=== PATIENT | female | born 1955 | race Caucasian/White ===

== ENCOUNTER 2016-06-06 00:47 | Day surgery (SDC) | payer OTHER ==
[~2016-06-06] VITALS: Ht 170.2 cm; Wt 94.4 kg
[2016-06-06] VITALS (7 sets, daily range): BP systolic 127–138; BP diastolic 65–73; PULSE 66–80; RESP 10–17; O2SAT 95–100
[~2016-06-06 00:47] MED LIST: LOV100 SUBQ; TERB250T11 PO; WARF6TAB6 PO
[2016-06-06] MEDS ORDERED: Ondansetron 2 mg/mL 2 mL Inj ONE (00:48)
[2016-06-06] MEDS ORDERED: Propofol 10,000 mCg/mL 20 mL Inj ONE (00:48)
[2016-06-06] MEDS ORDERED: Dexamethasone 4 mg/mL Inj ONE (00:48)
[2016-06-06] MEDS ORDERED: EPHEDrine/NS 5 mg/mL 5 mL Syringe ONE (00:48)
[2016-06-06] MEDS ORDERED: fentaNYL-PF 50 mCg/mL 2 mL Inj ONE (00:48)
[2016-06-06] MEDS ORDERED: Lactated Ringer's 1,000 ML IV SCH ×2 (05:00→09:29)
[2016-06-06] MEDS ORDERED: CeFAZolin 2 Gm/50 mL D5W IV Premix IV ONE (06:00)
[2016-06-06] MEDS ORDERED: Lactated Ringer's 500 ML IV PRN (09:29)
[2016-06-06] MEDS ORDERED: fentaNYL-PF 50 mCg/mL 2 mL Inj IVPUSH PRN (09:30)
[2016-06-06] MEDS ORDERED: Ondansetron 2 mg/mL 2 mL Inj IVPUSH PRN (09:30)
[2016-06-06] MEDS ORDERED: HYDROmorphone 1 mg/mL Inj IVPUSH PRN (09:30)
[2016-06-06] MEDS ORDERED: MetoCLOpramide 5 mg/mL 2 mL Inj IVPUSH PRN (09:30)
[2016-06-06] MEDS ORDERED: hydrALAZINE 20 mg/mL Inj IVPUSH PRN (09:30)
[2016-06-06] MEDS ORDERED: Phenylephrine 10,000 mCg/mL Inj IVPUSH PRN (09:30)
[2016-06-06] MEDS ORDERED: Labetalol 5 mg/mL 4 mL Inj IV PRN (09:30)
[2016-06-06] MEDS ORDERED: Atropine 0.4 mg/mL Inj IVPUSH PRN (09:30)
[2016-06-06] MEDS ORDERED: EPHEDrine Sulfate 50 mg/mL Inj IVPUSH PRN (09:30)
[2016-06-06] MEDS ORDERED: Bupivacaine Liposome 1.3% 20 mL Inj ONE (10:03)
--- NOTE | 2016-06-06 10:05 | PCM.HPANE ---
Patient Data Surgeon Admitting Provider: Attending Provider:Hermilo Todd MD Primary Care Physician:Elva Hirsch Other Provider: Reason for Visit Anal Lesion Ht/WT & BMI Height (Feet): 5 Height (Inches): 8 Weight (Kilograms): 95.70 Body Mass Index 31.00 Allergies Coded Allergies: lactose (Verified Allergy, Unknown, 05/31/16) Past Anesthesia History Anesthesia History: Denies:: Abnormal Airway, Anesthesia Reactions, Difficult Intubation, Fam Anesthesia Reaction Diabetes History Hx Diabetes?: No MRSA MRSA: No Medications Blood Thinner: Coumadin, Lovenox Hypertension Medication: No Home Meds Incl Beta Reggie: No Reported Medications Terbinafine 250 Mg [id number] Mg PO DAILY 05/31/16 Enoxaparin (Lovenox)100 Mg/Ml [id number] Mg SUBQ Q12 Ref 0 05/31/16 Warfarin Sodium 6 Mg Tablet8 Mg PO Mon,Wed, Fri 30 Days 05/31/16 Warfarin Sodium 6 Mg Tablet6 Mg PO 4xweekly 30 Days 05/31/16 History HEENT History: Denies:: Abnormal Airway Cataracts Difficult Intubation Dysphagia Glaucoma Hearing Problem Sinus Problem TMJ Hx of Heart Problems?: Yes Cardiovascular History: Positive for:: Atrial Fibrillation Cardiac Surgery (mitral valve replacement 2003) Edema (ankles - since heart surgery, lymphedema-hx cellulitis) Denies:: AICD Heart Murmur Hypertension Irregular Heartbeat Pacemaker Peripheral Vascular Rheumatic Fever Valvular Heart Disease (echo 2013 requested, next echo scheduled june 2016 ) Other History/Comments > 4 METS, last echo 08/2103 Ef 65% Hx of Respiratory Problem?: No Respiratory History: Denies:: Asthma COPD Emphysema Oxygen Administration Pneumonia Tuberculosis Use of C-PAP Machine Use of Inhalers / NEBS Hx Neurologic Problems?: No Neurological History: Denies:: Alzheimer's Disease CVA Dementia Dizziness Headaches Multiple Sclerosis Parkinson's Disease Seizures TIA Hx of GI Problems?: Yes Gastrointestinal History: Positive for:: Rectal Bleeding (anal mass- current admission problem) Denies:: Cirrhosis Diverticulitis Gall Bladder Disease Gastroesphageal Reflux Gastrointestinal Bleeding Heartburn Hepatitis Hiatal Hernia Liver Disease Hx of Problems?: No Genitourinary History: Denies:: Kidney Stones Urinary Tract Infection Female Hx: Positive for:: Problems with Breasts? (hx of breast reduction 2008) Denies:: Currently (tubal ligation) Skin History: Denies:: History Skin Disorders? Pressure Ulcers Hx Musculoskeletal Problems?: No Musculoskeletal History: Denies:: Back Injury Degenerative Joint Fibromyalgia Joint Replacement Musculoskeletal Trauma Myasthenia Gravis Osteoarthritis Rheumatoid Arthritis Systemic Lupus Hx of Psycho/Social Problems?: No Psycho Social History: Denies:: Anxiety Hx Depression Hx Surgeries?: Yes (mitral valve, breast reduction, tubal, commissurotomy) Hx Any Other Health Problems?: Yes Other History: Denies:: Cancer Thyroid Disease History Blood Transfusions: Positive for:: Accept Blood Products? Blood Transfusions (possible- uncertain) Denies:: Blood Transfuse Reaction Hx Diabetes: No Hx Alcohol Use: YesAlcoholic Drinks Per Day: couple glasses wine weeklyHx Substance Use: NoHave You Smoked inLast 12 mo: No Stop/Bang S-Snoring: Do You Snore Loudly: No T-Tired: feel tired, fatigued: No O-Obsered: Observed not breath: No P-Blood Pressure: treated: No B- Body Mass Index > 35 kg/m2: No A- Age over 50: Yes N- Neck Large Circumference: No G- Gender Male: No SANDIP Total Score: 1 SANDIP Risk Assessment: Low Risk, <3 Yes Risk Assessment Category Category 1A: Patient has history of documented sleep apnea, and HAS NOT received any narcotic, sedative or anesthesia administration during this stay. Category 1B: Patient has history of documented sleep apnea, and HAS received any narcotic , sedative or anesthesia administration during this stay Category 2: Patient has SUSPECTED Obstructive Sleep Apnea, and HAS received any narcotic , sedative or anesthesia administration during this stay. Category 3: Patient has SUSPECTED Obstructive Sleep Apnea and HAS NOT received narcotic, sedative or anesthesia administration during this stay. Category 4: Outpatient in Procedural Areas with known sleep apnea or who screen positive for High Risk via the STOP/BANG questionnaire. Exam Exam General Appearance: Alert, Oriented X3, Cooperative, No Acute Distress HEENT/AIRWAY: MP 2 Lungs: Clear to Auscultation, Normal Air Movement Heart: Exam Unremarkable, Regular Rate/Rhythm, No Murmurs/Rubs/Gallops Plan Impression Patient chart reviewed, patient interviewed and anesthestic plan with risks, benefits, and alternatives discussed, and informed consent obtained. ASA Physical Status: ASA2 Mod Systemic Disease Anesthetic Plan: GA Bene/Risks/Altern/Consents: Yes HP Complete Prior to Induction: Yes Owen Paulson MD Jun 06, 2016 09:01
[2016-06-06] MEDS ORDERED: Lactated Ringer's 1,000 ML IV ONE (10:10)
[2016-06-06] MEDS ORDERED: Gelatin Sponge SZ 50 TOPICAL ONE (11:39)
[2016-06-06] MEDS ORDERED: oxyCODONE-Acetamin 5-325 mg Tablet PO PRN (12:05)
--- NOTE | 2016-06-06 12:36 | OP ---
[address] [address] OPERATIVE REPORT PATIENT: LAMAR YBARRA : 1955 MR#: [id number] ADMIT: 06/06/2016 JOB ID: [id number] DATE OF SURGERY: 06/06/2016 ANESTHESIA: General. PREOPERATIVE DIAGNOSIS(ES): Anal lesion. POSTOPERATIVE DIAGNOSIS(ES): Anal lesion (likely condyloma). OPERATIVE PROCEDURE: Excision of anal lesions. SURGEON: Hermilo Todd MD. ASSISTANTS: Nayla Reeves PA-C (the assistant chief engineer was required for safe and timely completion of the case) and SADIA Hussein. COMPLICATIONS: None. ESTIMATED BLOOD LOSS: 20 mL. CONDITION: Satisfactory. SPECIMEN: 1. Left buttock lesion. 2. Left posterior anal lesion. 3. Left lateral rectal lesion. FINDINGS: She had what looked like a little neurofibroma in the left lateral buttock which was excised. She also had what looked like a very large condyloma extending from the left posterior aspect of the anus posteriorly and over to the right side. I excised the larger portion of this and then cauterized the remaining. Also higher up extending from this was some mucosal abnormality in the rectum which was probably just an extension of the condyloma but I also excised this as a separate specimen. OPERATIVE TECHNIQUE: The patient was brought in the operating room, and a colonoscopy was performed. Please see the separately dictated note. After completion of colonoscopy, she was placed on the surgical bed in the lithotomy position. She had already received perioperative antibiotics. The perineum was prepped and draped in standard surgical fashion. A procedure pause had already been performed. I began by visual inspection of anus using an anal speculum. I then used electrocautery to excise the small left buttock lesion. I then turned my attention to the larger portion of the condyloma and used electrocautery to excise this. There was heavy bleeding. This was controlled using electrocautery. I then elected to cauterize the right extension of that lesion. More proximally in the very distalmost rectum on the left side, there was some mucosal abnormality. Given the amount of bleeding encountered prior, I decided to use the LigaSure device to excise that mucosa. That was handed off as a separate specimen. Manual pressure was then held. Then, the anus was packed with Gelfoam wrapped in Surgicel. Liposomal bupivacaine was then injected to achieve an adequate block. Case was then concluded.
--- NOTE | 2016-06-06 13:27 | PCM.ANEP1 ---
Post Anesthesia Phase 1 PACU Phase 1 Assessment Vital Signs Vital Signs Date Time Temp Pulse Resp B/P Pulse Ox O2 Delivery O2 Flow Rate FiO2 06/06/16 13:09 66 17 133/70 96 Room Air 06/06/16 12:15 72 14 127/73 96 Room Air 06/06/16 12:05 70 13 132/70 99 Room Air 06/06/16 12:00 76 14 137/70 100 Nasal Cannula 2 06/06/16 11:55 80 12 134/72 100 Nasal Cannula 2 06/06/16 11:49 36.7 79 10 127/72 100 Nasal Cannula 2 06/06/16 08:58 36.6 76 14 138/65 95 Room Air Anesthetic Administered: GA Level of Alertness: Awake, talking DELAROSA's with Equal Strength: Yes Pain: No Nausea or Vomiting: No Oxygen Delivery: Nasal Cannula Lungs: Clear to Auscultation, Normal Air Movement Owen Paulson MD Jun 06, 2016 13:27
--- NOTE | 2016-06-06 13:28 | PCM.ANEP2 ---
Post Anesthesia Evaluation ASA/CMS Post Anesthesia VS in Patient's Normal Range?: Yes Resp Stable; Airway Patent?: Yes CV Function & Hydration Stable: Yes Mental Status Recovered?: Yes Pain control Satisfactory?: Yes N/V Control Satisfactory?: Yes Owen Paulson MD Jun 06, 2016 13:28
--- NOTE | 2016-06-06 13:43 | ENDO ---
[address] [address] ENDOSCOPY PROCEDURE PATIENT: LAMAR YBARRA : 1955 MR#: [id number] ADMIT: 06/06/2016 JOB ID: [id number] PROCEDURE: Screening colonoscopy. SURGEON: Hermilo Todd MD EQUIPMENT: PCF H 180 AL. SEDATION: General anesthesia. PREPARATION QUALITY: Good. INDICATION/SIGNIFICANT HISTORY: The patient is a 60-year-old female who has never had a screening colonoscopy. She was undergoing resection of an anal lesion and the decision was made to perform a colonoscopy at the same time. DESCRIPTION OF PROCEDURE: The patient was brought into the operating room and general anesthesia was administered. She was then placed in the left lateral decubitus position. Digital rectal exam was performed. She had a large condylomatous lesion in the anus. The scope was then inserted and slowly directed through to the cecum. The appendiceal orifice and ileocecal valve were both identified and photographed. The ileocecal valve was intubated and the terminal ileum photographed. The scope was then slowly withdrawn, examining the mucosa for any defects or lesions. There were very few scattered diverticula within the sigmoid colon. Retroflexed views were obtained in the rectum that were suboptimal due to the leakage of air. The scope was then withdrawn and the colonoscopy concluded. ENDOSCOPIC FINDINGS: Sigmoid diverticulosis. RECOMMENDATION: Repeat colonoscopy in 10 years.
--- NOTE | 2016-06-10 16:52 | PATH ---
SURGICAL PATHOLOGY Attending Physician:Hermilo Todd MD CASE STATUS: Signed Out PATIENT NAME: LAMAR YBARRA PID: [id number] : 1955 DATE COLLECTED:06/06/2016 23:34 SPECIMEN: 1: Left buttock lesion 2: Left posterior anal lesion 3: Left lateral rectal lesion CLINICAL HISTORY: ANAL MASS 1). LEFT BUTTOCK LESION 2). LEFT POSTERIOR LESION 3). LEFT LATERAL RECTAL LESION FINAL DIAGNOSIS: 1.LEFT BUTTOCK LESION: BENIGN FIBROEPITHELIAL POLYP. NO EVIDENCE OF NEOPLASIA. 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 THE EPITHELIAL MARGINS ARE POSITIVE FOR DYSPLASIA. 3.LEFT LATERAL RECTAL LESION: BENIGN COLONIC MUCOSA WITH NO DIAGNOSTIC ALTERATIONS, EVALUATION LIMITED BY CAUTERY ARTIFACT. ICD10 code C21.1 NOTE: As part of a routine senior quality engineer, Dr. Carmelina Quesada has also reviewed this case and agrees with the diagnosis. GROSS DESCRIPTION: The specimen is received in three formalin filled containers labeled with the patient's name. 1). The specimen is sublabeled "left buttock" and consists of a rodríguez-amador pedunculated piece of skin which measures 1.1 x 0.9 x 0.7 CM the surgical margin is inked blue. The specimen is sectioned into 4 pieces and entirely submitted in cassettes 1A. 2). The specimen is sublabeled "left posterior lesion" and consists of a pink-amador friable rough dome shaped piece of skin which measures 1.8 x 1.5 x 1.0 CM. The specimen is fragmenting. The specimen is sectioned into 6 pieces and entirely submitted in cassettes 2A and 2B. 3). The specimen is sublabeled "left lateral rectal lesion" and consists of an irregularly shaped portion of tissue which measures 1.4 x 0.4 x 0.3 CM. The specimen is inked, sectioned into 4 pieces and entirely submitted in cassette 3A. 06/07/2016 [facility] MICRO DESCRIPTION: See diagnosis. ICD-9 CODES: CPT CODES: 1: 92011 2: 16502 3: 77179, 60156 <CR>, 73642 PROCEDURE/ADDENDA: Addendum SPI Addendum Diagnosis {Not Entered} Addendum Comment This addendum is issued to give additional information about the invasive carcinoma in the left posterior anal lesion (specimen 2). Additional deeper levels were obtained to quantitate the invasive area. The deeper levels showed a 6 x 4 mm area of invasion. The invasive carcinoma is less than 1 mm from the cauterized deep margin. No lymph/vascular or perineural invasion is identified. Pathologic staging (pTNM), based on this specimen: pT1. This information was reported by telephone to Dr. Todd on 07/04/[address] Torres. Electronically Signed Out Laurie Torres MD Electronically Signed Out Laurie Torres MD [facility] [address], [place] [address] Technical component performed at [facility], [address] [place] [address] [address], [place], [address]
[2016-08-19] MEDS ORDERED: LACT1CAP65 PO (13:12)
[2016-08-19] MEDS ORDERED: AMBEREN PO (13:12)
[2016-08-19] MEDS ORDERED: VIT B COMPLEX PO (13:12)
[2016-08-19] MEDS ORDERED: MAGN400T39 PO (13:12)
[2016-08-19] MEDS ORDERED: CO Q10 LIQUID PO (13:12)
[2016-08-19] MEDS ORDERED: KRIL1CAP PO (13:12)
[2016-08-19] MEDS ORDERED: CYAN50008 PO (13:12)
[2016-08-19] MEDS ORDERED: ASCO100089 PO (13:12)
[2016-08-19] MEDS ORDERED: CHOL-4 PO (13:12)
[2016-09-11] MEDS ORDERED: CAPE500T PO ×2 (08:40)
[2016-09-18] MEDS ORDERED: ZOF8 PO (14:24)
[2016-10-02] MEDS ORDERED: OXYC5CAP4 PO (14:11)
[2016-10-09] MEDS ORDERED: DIPH1TAB PO (13:29)
== END 2016-06-06 23:59 | disposition home or self-care (01) ==
LOC: SAS 00:47
PROVIDERS: ATTEND General Practice
DX: Z12.11 Encounter for screening for malignant neoplasm of colon (principal); C44.520 Squamous cell carcinoma of anal skin; D23.5 Other benign neoplasm of skin of trunk; K57.30 Diverticulosis of large intestine without perforation or abscess without bleeding; I48.2 Chronic atrial fibrillation; Z79.01 Long term (current) use of anticoagulants; Z95.2 Presence of prosthetic heart valve
CPT/HCPCS: 11402; 46922; G0121; J0690; J1100; J2405; J3010; J3490; J7120

== ENCOUNTER 2016-10-12 12:54 | Inpatient (IN) | payer OTHER ==
[~2016-10-12] VITALS: Ht 170.2 cm; Wt 91.4 kg
[~2016-10-12 12:54] MED LIST changes: +AMBEREN PO; +ASCO100089 PO; +CAPE500T PO; +CHOL-4 PO; +CYAN50008 PO; +DIPH1TAB PO; +KRIL1CAP PO; +LACT1CAP65 PO; -LOV100 SUBQ; +MAGN400T39 PO; +OXYC5CAP4 PO; -TERB250T11 PO; +VIT B COMPLEX PO; +ZOF8 PO
[2016-10-12 13:01] VITALS: BP 123/63; PULSE 83; RESP 15; O2SAT 97
--- NOTE | 2016-10-12 13:05 | ED.REPORT ---
HPI-General Illness Date of Service Oct 12, 2016 ED Provider: Dr. Monsivais Pt is a 60 y/o female anticoagulated on Warfarin w/ a hx of stage IIIB anal cancer on oral Xeloda and mitomycin-C, CHF s/p mitral valve replacement, A-fib, presenting to the ED by recommendation of oncology due to diarrhea onset 2 weeks ago. The patient has been experiencing about 20 loose bowel movements per day along with associated abdominal pain, nausea, mild vomiting, and dysuria. She also reports bright red blood on the toilet paper after BMs which she describes is caused by excessive wiping. Pt denies fever, chills, CP, SOB, melena. Of note, she was seen a few days ago in "a clinic" and her INR was 10. She was given Vitamin K for correction.She is denying pain medication at the moment. The on-call oncologist Dr. Shane called the ED and spoke to me prior to arrival and recommended labs, IV fluids, stool PCR, and likely admit. He stated her stool studies were normal last week, Hgb has been trending downwards. Oncologist: Jose Nursing Notes Stated Complaint: STOMACHE PAIN,DIARRHEA Chief Complaint: Female Abdominal Pain Nursing Notes Reviewed: Yes Allergies: Coded Allergies: No Known Allergies (Unverified , 08/19/16) Scheduled ([Amberen]) 1 CAPSULE PO DAILY ([Vit B Complex]) 1 TAB PO DAILY Ascorbic Acid (Vitamin C) 1,000 Mg Tab.chew 1,000 MG PO DAILY Capecitabine (Xeloda) 500 Mg Tablet 2,000 MG PO QAM W/RADIATION Capecitabine (Xeloda) 500 Mg Tablet 1,500 MG PO QEVENING W/RADIATION Cholecalciferol (Vitamin D3) (Vitamin D3) 10,000 Unit Capsule 10,000 UNIT PO DAILY Cyanocobalamin (Vitamin B-12) (Vitamin B12) 5,000 Mcg Tab.rapdis 5,000 MCG PO DAILY Krill/Om3/Dha/Epa/Om6/Lip/Astx (Krill Oil 1,000 mg Softgel) 1 Each Capsule 1 EACH PO DAILY Lactobacillus Acidophilus (Probiotic) 1 Each Capsule 1 EACH PO DAILY Magnesium Oxide (Magnesium) 400 Mg Tablet 400 MG PO DAILY Warfarin Sodium (Warfarin Sodium) 6 Mg Tablet 8 MG PO DAILY Scheduled PRN Diphenoxylate/Atropine 2.5-0.025 mg (Lomotil 2.5-0.025 mg) 1 Each Tablet 1 TABLET PO Q6H PRN PRN For Diarrhea or Loose Stool Ondansetron (Zofran) 8 Mg Tablet 8 MG PO q8hrs prn PRN PRN For Nausea oxyCODONE (oxyCODONE) 5 Mg Capsule 5 MG PO DAILY PRN PRN For Pain General Time Seen by MD: 13:05 Chief Complaint Diarrhea Hx Obtained From: Patient Arrived By: Walk-in Sudden in Onset?: No Onset Occurred: More than a week ago... (2 weeks) Symptom Duration: Since onset Location: : Abdomen Quality: Painful Severity: Current: Mild Severity: Maximum: Moderate Recent Healthcare: Recent doctor visit Past Medical History Past Medical History Notes: Oncologist: Jose Past Medical History 1. Mitral valve replacement with a prosthetic valve in 2003 on anticoagulation. 2. Congestive heart failure. 3. History of atrial fibrillation on Warfarin 4. Lower extremity edema. 5. Mitral commissurotomy in 1983. When asked, she does not recall she might have received blood transfusion with that procedure in 1983. 6. Echocardiogram performed on June 25, 2016 here at our center showed a normal ejection fraction of 55% to 60%. 7. Stage IIIB anal cancer and started chemoradiation with oral Xeloda and mitomycin-C starting September 11, 2016. Past Surgical History Mitral valve replacement in 2003 Tubal ligation Family History She has one sister and two brothers. One maternal cousin had breast cancer and a paternal female cousin also had breast cancer. Smoking History Never Smoker Social History Alcohol Use: 1-3 per week Drug Use: Denies drug use Ambulatory Status Independent Review of Systems Full Review of Systems Constitutional: Denies: Chills, Fever Respiratory: Denies: Non-productive cough, Shortness of breath Cardiovascular: Denies: Chest pain, Dyspnea on exertion GI: Reports: Abdominal pain, Diarrhea, Hematochezia, Nausea, Vomiting, Denies: Bloody/tarry stool, Hematemesis, Melena Female: Reports: Dysuria Neurologic: Denies: Numbness, Weakness Complete sys rev & neg: except as marked. Physical Exam Vital Signs Vital Signs Date Time Temp Pulse Resp B/P Pulse Ox O2 Delivery O2 Flow Rate FiO2 10/12/16 13:01 37.3 83 15 123/63 97 Room Air Initial VS: Reviewed, Vital signs normal Head / Eyes: Atraumatic, Normocephalic, PERRL ENT: Mucous membranes moist, Conjunctiva normal, No scleral icterus Neck: Supple, Full range of motion Respiratory: Breath sounds normal, Clear to auscultation, No respiratory distress Extremities: Vascular intact, Neuro intact, No swelling, No tenderness Skin: Warm, Dry, No cyanosis Neurologic: Alert, Oriented, Nonfocal Psychiatric: Mood/affect normal, Behavior normal, Normal thought content General/Constitutional: Awake, Alert, No acute distress, Cooperative, Not toxic appearing Distress / Hydration: Positive: Dehydration mild Appearance / Presentation: Positive: Uncomfortable Cardiovascular: Heart rate NL, Regular rhythm Prominent click at the apex of the heart Abdomen: Atraumatic, Soft, No guarding, No rebound Tenderness/Guarding/Rebound: Positive: Tender diffuse (mild) Bowel Sounds / Distention: Positive: Distention mild Interpretation & Diagnostics Lab Results Interpretation Result Diagram: 10/12/16 1325 10/12/16 1325 Test 10/12/16 13:25 White Blood Count 5.1th/mm3 (3.8-10.1) Red Blood Count 3.67mil/mm3 (3.90-5.20) Hemoglobin 10.8g/dL (12.0-15.6) Hematocrit 31.7% (35.0-46.0) Mean Corpuscular Volume 86.4fL (81-100) Mean Corpuscular Hemoglobin 29.4pg (27.0-35.0) Mean Corpuscular Hemoglobin Concent 34.1% (32.0-37.0) Red Cell Distribution Width 13.5% (12.3-15.4) Platelet Count 231bil/L (150-400) Neutrophils (%) (Auto) 81.7% (40-74) Lymphocytes (%) (Auto) 3.5% (14-46) Monocytes (%) (Auto) 7.0% (4-12) Eosinophils (%) (Auto) 7.4% (0-5) Basophils (%) (Auto) 0.2% (0-3) Prothrombin Time 88.9sec (8.1-12.5) Prothromb Time International Ratio 7.96ratio Sodium Level 136mEq/L (134-144) Potassium Level 3.1mEq/L (3.5-5.2) Chloride Level 100mEq/L (97-108) Carbon Dioxide Level 22mmol/L (18-29) Blood Urea Nitrogen 9mg/dL (8-27) Creatinine 0.46mg/dL (0.57-1.00) Estimat Glomerular Filtration Rate 198mL/min (>59) Glucose Level 114mg/dL (60-99) Calcium Level 8.4mg/dL (8.5-10.1) Magnesium Level 1.6mg/dL (1.6-2.6) Total Bilirubin 0.6mg/dL (0.0-1.2) Aspartate Amino Transf (AST/SGOT) 38U/L (0-50) Alanine Aminotransferase (ALT/SGPT) 61U/L (0-32) Alkaline Phosphatase 81U/L (25-165) Total Protein 6.1g/dL (6.4-8.4) Albumin 3.4g/dL (3.4-5.0) Lipase 20U/L (13-60) Re-Eval/Medical Decision Med Decision/Clinical Course Persistent diarrhea thought to be due to radiation bowel injury. Normal white blood cell count recently negative stool C. difficile. Supportive care given. Oral vitamin K, 100 g subcutaneous octreotide, 10 mg IV dexamethasone, and supplemental IV fluids given. Abdominal exam is reassuring and do not suspect that she has an acute surgical abdomen. Patient will be admitted. Source of Hx: Old records, Private physician Time of Eval: 14:30 Re-Evaluation/Progress Note: Pt rechecked. Informed pt of need for admission for rehydration. Pt understands and agrees with plan for admission. All questions addressed. Time of Eval: 14:44 Re-Evaluation/Progress Note: CODE STATUS DISCUSSED: FULL CODE Consultation #1: Referral / Consult Name: Ephraim Evans MD Consulted With: Hospitalist Call Returned at: 14:30 Application Security Architect: Will see patient, Agrees with eval, Agrees with plan, Accepts admit Consultation #2: Referral / Consult Name: Graciela Shane MD Call Returned at: 12:45 Application Security Architect: Agrees with eval, Agrees with plan Note: Oncology will consult. Counseled Regarding: Diagnosis, Lab results, Need for admission Discharge & Departure Primary Impression: Dehydration Additional Impressions: Anal cancer Symptomatic anemia Supratherapeutic INR Diarrhea Diarrhea type: unspecified type Qualified Code: R19.7 - Diarrhea, unspecified Hypokalemia Anticoagulated on warfarin Lower GI bleed Disposition: ADMITTED TO HOSPITAL Discharge Condition All VS Reviewed: Yes Condition: Stable Referrals: Elva Hirsch (PCP) Paulo uGzman MD Attestation Portions of this note were transcribed by Klever Guzmán. I, Dr. Monsivais personally performed the history, physical exam and medical decision-making; I reviewed and confirmed the accuracy of the information in the transcribed note. Signed by Suleiman Cavanaugh, 10/12/16 - 1400 copies to: Elva Hirsch; Paulo Guzman MD, Timothy S DO Oct 12, 2016 13:05 KLEVER GUZMÁN Oct 12, 2016 13:12
[2016-10-12] MEDS ORDERED: 0.9% Sodium Chloride 1,000 ML IV ONE (13:10)
[2016-10-12] MEDS ORDERED: Ondansetron 2 mg/mL 2 mL Inj IVPUSH PRN ×3 (13:10→16:35)
[2016-10-12] MEDS ORDERED: Dexamethasone Inj 10 MG in 0.9% Sodium Chloride-Pha MIX 50 ML IV ONE (13:35)
[2016-10-12 13:56] LABS: BASOPHILS % (AUTO) 0.2 % (0-3); EOSINOPHILS % (AUTO) 7.4 % (0-5); Mean Corpuscular Hemoglobin 29.4 pg (27.0-35.0); Mean Corpuscular Volume 86.4 fL (81-100); NEUTROPHILS % (AUTO) 81.7 % (40-74); Platelet Count 231 bil/L (150-400)
[2016-10-12 14:15] LABS: Magnesium 1.6 mg/dL (1.6-2.6)
[2016-10-12 14:32] LABS: INR 7.96 ratio
[2016-10-12] MEDS ORDERED: 0.9% Sodium Chloride 1,000 ML IV SCH ×2 (14:44→16:32)
[2016-10-12] MEDS ORDERED: Alum-Mag Hydrox-Simeth 30 mL Suspension PO PRN ×2 (14:45→16:35)
[2016-10-12] MEDS ORDERED: KCl 40 mEq/D5W 500 mL 40 MEQ in IV Premix 1 EACH IV ONE (14:45)
[2016-10-12] MEDS ORDERED: Phytonadione (Adult) 10 mg/1 mL Inj PO ONE (14:45)
[2016-10-12] MEDS ORDERED: OXYC-407 PO (14:47)
[2016-10-12] MEDS ORDERED: VIT1TABL83 PO (14:47)
[2016-10-12 16:15] VITALS: BP 138/75; PULSE 71; RESP 16; O2SAT 96
[2016-10-12] MEDS ORDERED: Polyethylene Glycol (PEG) 17 Gm Powder PO PRN (16:35)
[2016-10-12] MEDS ORDERED: Ondansetron 8 mg ODT Tablet PO PRN (16:40)
--- NOTE | 2016-10-12 17:10 | PCM.PHAPRO ---
Progress Date of Service: Oct 12, 2016 Requesting Provider: Ephraim Evans MD MVR, AFib inr goal 2.5-3.5 INR 7.9..no warfarin Cullen Shelton [facility] Oct 12, 2016 17:10
[2016-10-12] MEDS: oxyCODONE-Acetamin 5-325 mg Tablet PO PRN (17:24)
--- NOTE | 2016-10-12 17:36 | HP ---
[address] [address] HISTORY AND PHYSICAL PATIENT: LAMAR YBARRA : 1955 MR#: [id number] ADMIT: 10/12/2016 JOB ID: [id number] PRIMARY CARE PROVIDER: 1. Torrey, nurse practitioner. 2. Dr. Garica, Hematology/Oncology. 3. Dr. Bowden, Radiation Oncology. Patient is admitted from the ED, observational status, orange team. CHIEF COMPLAINT: Unremitting diarrhea, weakness, fatigue, and pain, not well controlled by oral medicines. HISTORY OF PRESENT ILLNESS: This is a 60-year-old female, recently diagnosed with stage IIIB anal cancer, on chemoradiation therapy, who has had just unremitting diarrhea for 2+ weeks. The patient has been given octreotide. She had a stool diff sent which was negative. She has been taking Imodium and then Lomotil with no relief. Her INR went very high. That had to be held, INR was 10 on Friday. Repeated today, it was down to 7, and her Coumadin has been on hold. Patient also uses Percocet for pain, mostly in the perirectal/abdominal area and that has not been well controlled either, and she is worried that she may not be even absorbing the Percocet that she has been using. No fevers, no chills. No nausea, vomiting. No chest pain. Patient had a headache but that is resolved at this time. REVIEW OF SYSTEMS: Complete review of systems obtained, all pertinent positives in HPI above, rest of review of systems are negative. PAST MEDICAL HISTORY: 1. Recently diagnosed stage IIIB anal cancer, on chemo radiation therapy. 2. Mitral valve replacement, 2003, on Coumadin. 3. History of mitral commissurotomy 1983. 4. AFib. MEDICATIONS: 1. Percocet 5/325, 1-2 q.6 h. p.r.n. p.o. 2. Lomotil 1 q.6. 3. Octreotide occasionally and recently in the doctor's office. 4. Coumadin on hold for a few days for an INR that was elevated. ALLERGIES: None. SOCIAL HISTORY: The patient lives with her . Quit smoking about 15 years ago. There is no alcohol use at this time. FAMILY HISTORY: A maternal cousin with breast cancer noted. PHYSICAL EXAMINATION: Afebrile, heart rate 83, respiratory rate 15, blood pressure 122/63, O2 sats 97% on room air. The patient appears a bit uncomfortable in bed. In the emergency department, she has already received 1 L of fluid which has made her feel better. She got a dose of IV morphine which also helped. Given some octreotide and 10 mg of Decadron IV. Skin is warm and dry. Mucous membranes a little dry but not parched. Eyes: PERRLA. EOM intact. No JVD. Cardiac is regular with mechanical heart sounds. No significant murmur. Lungs are clear but slightly diminished. No rhonchi, wheezing, or rales. Her abdomen is soft, nonacute, and benign anteriorly. Her extremities showed no significant edema. Cranial nerves 2-12 are intact. No gross motor or sensory defects noted. DIAGNOSES: 1. Unremitting diarrhea, present on admission. Active. I have reviewed this with Dr. Shane route contractor as he had sent patient to hospital. The patient has had Decadron and octreotide. We are going to maintain some hydration, increase the Lomotil to two tablets every 4 hours p.r.n. diarrhea. Will also send a stool PCR. Depending on those results and response, will make further diagnostic and therapeutic intervention. 2. Dehydration present on admission. Active. Patient has already received a liter, feeling better. Put on a regular diet. Provide her with NS at 100 and will repeat a BMP tomorrow. Will also get all her baseline lab today. 3. Supratherapeutic INR, INR 7.96. Will initiate Coumadin management per Pharmacy, and get a pro-time every day. Obviously, patient's Coumadin will be held until it drops within a therapeutic range. Her therapeutic range is 2.5-3.5. 4. Mechanical mitral valve. On Coumadin. Present on admission. Stable. Continue with Coumadin and try to achieve a therapeutic window. 5. Stage IIIB anal cancer, present on admission. Stable. CODE STATUS: FULL CODE. Code sheet filled out.
[2016-10-12 18:01] LABS: Magnesium 1.6 mg/dL (1.6-2.6)
--- NOTE | 2016-10-12 18:06 | NUR ---
Admit Patient arrived to room [facility] at 1545 via stretcher from ED. Patient ambulated to bed with as SBA, steady on feet. A/Ox3. IVF infusing. Pt oriented to room, call light, and bed. Patient informed of plan of care. Admit completed by admit nurse.
[2016-10-12 19:01] LABS: APPEARANCE,URINE CLEAR (CLEAR,HAZY); COLOR,URINE YELLOW (YELLOW)
[2016-10-12 19:02] LABS: OCCULT BLOOD,URINE SMALL (NEGATIVE); UROBILINOGEN,URINE NORMAL (NORMAL)
[2016-10-12] MEDS: 0.9% NaCl + KCl 20 mEq/L 1,000 ML IV SCH (19:44)
[2016-10-12] MEDS: DiphenOXYlate-Atropine 2.5 mg-0.025 mg Tablet PO PRN (19:47)
--- NOTE | 2016-10-12 20:35 | NUR ---
Diarrhea Already had 2 episodes of diarrhea upon arrival to shift gave first dose of prn Lomotil Addendum: 10/13/16 at 0630 by JEREMY SHARPE RN Diarrhea continues but has slowed in frequency as well as signs of blood in stool
[2016-10-12 22:20] VITALS: BP 143/79; PULSE 70; RESP 18; O2SAT 96
[2016-10-12] MEDS: HYDROmorphone 1 mg/mL Inj IVPUSH PRN (22:22)
[2016-10-12] MEDS: Mineral Oil-Petr Hydrophillic 50 Gm Ointment TOPICAL PRN (22:22)
--- NOTE | 2016-10-12 23:20 | NUR ---
Topical solution per patient uses Aquaphor for rectal pain and burning text page MD is available obtained order for
[2016-10-13] MEDS: oxyCODONE-Acetamin 5-325 mg Tablet PO PRN ×4 (00:46→22:36)
[2016-10-13] MEDS: DiphenOXYlate-Atropine 2.5 mg-0.025 mg Tablet PO PRN ×4 (00:59→21:20)
[2016-10-13 04:20] LABS: INR 3.06 ratio
[2016-10-13] MEDS: 0.9% NaCl + KCl 20 mEq/L 1,000 ML IV SCH (06:04)
[2016-10-13 06:17] VITALS: BP 133/72; PULSE 69; RESP 18; O2SAT 98
[2016-10-13] MEDS ORDERED: AMBEREN PO SCH (08:30)
[2016-10-13] MEDS ORDERED: Vitamin B Complex/Vit C Tablet PO SCH (08:30)
[2016-10-13] MEDS: Vitamin B Complex/Vit C Tablet PO SCH (08:31)
[2016-10-13] MEDS: Ascorbic Acid 500 mg Tablet PO SCH (08:31)
[2016-10-13] MEDS: Mineral Oil-Petr Hydrophillic 50 Gm Ointment TOPICAL PRN (08:43)
--- NOTE | 2016-10-13 09:17 | NUR ---
Social Work- Screening Data: EMR reviewed. Pt is a 60 year old female admitted 10/12/16 for diarrhea, upper GI bleed, rectal cancer per H&P. Pt's payor is [facility] and [facility]. Pt's PCP is EBONI Garcia. SW met with pt at bedside regarding discharge plan, SW role explained. Pt alert and oriented x3. Pt resides in [place] with her where she remains independent at baseline. Pt's [place] [phone] is her caregiver and support. Pt was observed ambulating independently in the room during this assessment. Pt has no DPOA on file, SW provided paperwork at bedside. Pt to discharge home with to transport via POV. No discharge needs identified at this time. SW will continue to follow. Assessment: Pt who is independent at baseline with her as caregiver. Plan: Pt to discharge home with to transport via POV. No discharge needs identified at this time. SW will continue to follow. CARA Jarvis
--- NOTE | 2016-10-13 12:06 | PCM.PNMED ---
Subjective Date of Service Oct 13, 2016 Subjective Diarrhea about the same, frequent, but feels much better with the hydration, stronger with better appetite. Dr Garcia called me this AM and we reviewed this patient, plan is to schedule IV decadron and SQ octriatide. No other problems noted, stool pcr is negative. Exam Vital Signs Vital Sign - Last Date Time Temp Pulse Resp B/P Pulse Ox O2 Delivery O2 Flow Rate FiO2 10/13/16 06:17 36.8 69 18 133/72 98 Room Air Intake and Output 10/12/16 10/12/16 10/13/16 Cumulative From/Thru 15:00 23:00 07:00 10/12/16 13:01 - 10/13/16 06:27 Intake Total 1000 ml 648 ml 2125 ml 3773 ml Balance 1000 ml 648 ml 2125 ml 3773 ml Intake Oral 800 ml 800 ml IV Total 1000 ml 648 ml 1325 ml 2973 ml # Voids 4 10 14 # Bowel Movements 4 10 14 Exam Skin; warm and dry HENT; good oral hydration CV, no edema, no murmur, no JVD Resp; clear to auscultation GI; little mild discomfort to palp, otherwise benign Lab and Diagnostics Result Diagram: 10/12/16 1325 10/12/16 1325 Assessment & Plan 1. Unremitting diarrhea, present on admission. Active. -IV hydration 100 cc/hr, -increase the Lomotil to two tablets every 4 hours p.r.n. -stool PCR negative for pathogen -dietary consult for diarrhea -start scheduled decadron 4 mg IV bid -start scheduled octreatide 50 mcg SQ q 8 hours 2. Dehydration present on admission, improving. -continue hydration at 100 cc/hr -repeat BMP today and in AM 3. Supratherapeutic INR, poa, improving -INR 7.96 on admit, 3.06 today -resume Coumadin to day -Goal is 2.5 to 3.5 foe valve 4. Mechanical mitral valve. On Coumadin. Present on admission. -coumadin as above. 5. Stage IIIB anal cancer, present on admission. Stable. -Dr Garcia will call and cancel patient's scheduled radiation treatment for tomorrow CODE STATUS: FULL CODE. Code sheet filled out. Ephraim Evans MD Oct 13, 2016 12:06
[2016-10-13] MEDS ORDERED: Dexamethasone 4 mg/mL Inj IVPUSH ONE (12:10)
[2016-10-13] MEDS: HYDROmorphone 1 mg/mL Inj IVPUSH PRN ×2 (13:26→19:14)
[2016-10-13] MEDS: AMBEREN PO SCH (15:49)
[2016-10-13 16:30] VITALS: BP 129/77; PULSE 60; RESP 18; O2SAT 97
--- NOTE | 2016-10-13 16:43 | NUR ---
Continued Diarrhea Patient continues to have frequent diarrhea episodes 1-2/hr. Lomotil, Octreotide, and Decadron given. Hospitalist made aware, order received for daily weights. Unable to measure output b/c pt does rinses to rectal area while on toilet, pt declined having hat placed in toilet. Pt continues to have good PO intake and on IVF.
[2016-10-13] MEDS ORDERED: CHOL200025 PO (17:00)
[2016-10-13] MEDS ORDERED: Warfarin 5 MG, Warfarin 2.5 MG PO ONE ×2 (17:00)
[2016-10-13] MEDS: 0.9% Sodium Chloride 1,000 ML IV SCH (17:29)
[2016-10-13 22:26] VITALS: BP 150/80; PULSE 96; RESP 18; O2SAT 100
[2016-10-14] MEDS: 0.9% Sodium Chloride 1,000 ML IV SCH ×2 (03:42→15:51)
[2016-10-14] MEDS: HYDROmorphone 1 mg/mL Inj IVPUSH PRN ×7 (03:42→23:00)
[2016-10-14 06:03] VITALS: BP 132/71; PULSE 63; RESP 18; O2SAT 98
[2016-10-14] MEDS: oxyCODONE-Acetamin 5-325 mg Tablet PO PRN ×3 (06:17→20:20)
[2016-10-14] MEDS: DiphenOXYlate-Atropine 2.5 mg-0.025 mg Tablet PO PRN ×2 (06:17→15:52)
[2016-10-14 06:28] LABS: INR 2.33 ratio
--- NOTE | 2016-10-14 06:40 | NUR ---
Shift note Diarrhea continues but almost half as much as previous night continue to medicate with Dilaudid and Percocet for pain
[2016-10-14 07:35] VITALS: BP 152/71; PULSE 68; RESP 16; O2SAT 96
--- NOTE | 2016-10-14 07:43 | PCM.PNMED ---
Subjective Date of Service Oct 14, 2016 Subjective 60 F with recently diagnosed anal cancer currently undergoing chemo rad, developed severe diarrhea. Being treated under Dr. Garcia's guidance. She says she started dexamethasone and occtreotide as o/p on Fri, came on sat to the ED upon Dr. Garcia's request. Dr. Garcia also held Xeloda. No appetite but trying to eat well. She has had one BM this AM, runny. Always has blood due to radiation damage. States she was worked up for everything else with colonoscopy. c/o Lower abd cramping . No other concerns. Exam Vital Signs Vital Sign - Last Date Time Temp Pulse Resp B/P Pulse Ox O2 Delivery O2 Flow Rate FiO2 10/13/16 22:26 36.5 96 18 150/80 100 Room Air Intake and Output 10/13/16 10/13/16 10/14/16 Cumulative From/Thru 15:00 23:00 07:00 10/12/16 13:01 - 10/13/16 17:34 Intake Total 2465 ml 6238 ml Balance 2465 ml 6238 ml Intake Oral 1400 ml 2200 ml IV Total 1065 ml 4038 ml # Voids 15 29 # Bowel Movements 15 29 Exam General: Alert, Oriented X3, Cooperative, Looks stated age Eyes: PERRLA, Scleral Anicteric Mouth: Mouth Normal, Mucous Membranes moist Neck: Supple, no Thyromegaly, trachea central. Chest & Lungs: Clear to auscultation & percussion, No adventitious breath sounds, no crackles, no wheeze Cardiovascular: Normal S1, Normal S2, No Murmurs/Rubs/Gallops, Regular Rate/ Rhythm, (No JVD, no peripheral edema), mewchanical click of MV can be heard Abdomen: Soft, Non-tender, Non-distended, Normoactive bowel tones. Musculoskeletal: Unremarkable. Normal range of motion, no swollen or erythematous joints Extremities: Positive for 1+ pitting edema L>R Skin: No rashes. Warm and dry, no erythematous areas Neurological: Grossly neurologically intact, Normal Speech, Sensation Intact IVs and Medications IV Fluids NSS 100 cc/hr Medications Reviewed: Medications were reviewed in detail Lab and Diagnostics Laboratory Tests Test 10/13/16 16:15 10/14/16 05:45 Sodium Level 134mEq/L (134-144) 138mEq/L (134-144) Potassium Level 4.0mEq/L (3.5-5.2) 4.1mEq/L (3.5-5.2) Chloride Level 101mEq/L (97-108) 105mEq/L (97-108) Carbon Dioxide Level 22mmol/L (18-29) 21mmol/L (18-29) Blood Urea Nitrogen 9mg/dL (8-27) 7mg/dL (8-27) Creatinine 0.49mg/dL (0.57-1.00) 0.48mg/dL (0.57-1.00) Estimat Glomerular Filtration Rate 185mL/min (>59) 189mL/min (>59) Glucose Level 146mg/dL (60-99) 107mg/dL (60-99) Calcium Level 8.4mg/dL (8.5-10.1) 8.1mg/dL (8.5-10.1) Prothrombin Time 25.4sec (8.1-12.5) Prothromb Time International Ratio 2.33ratio Microbiology 10/12/16 Campylobacter (PCR) - Final, Complete Not Detected 10/12/16 Clostridium difficile Toxin A&B (M) - Final, Complete Not Detected 10/12/16 Plesiomonas shigelloides (PCR) - Final, Complete Not Detected 10/12/16 Salmonella (PCR)(MELODY) - Final, Complete Not Detected 10/12/16 Yersinia enterocolitica (PCR) - Final, Complete Not Detected 10/12/16 Vibrio Species (PCR) - Final, Complete Not Detected 10/12/16 Vibrio Cholerae (PCR) - Final, Complete Not Detected 10/12/16 Enteroaggregative E. coli (PCR) - Final, Complete Not Detected 10/12/16 Enteropathogenic E. coli (PCR) - Final, Complete Not Detected 10/12/16 Enterotoxigenic E. coli (PCR) - Final, Complete Not Detected 10/12/16 E. coli Shiga-like Toxin (PCR) - Final, Complete Not Detected 10/12/16 Escherichia coli 0157 (PCR) - Final, Complete Not Detected 10/12/16 Enteroinvasive E. coli/Shigella PCR - Final, Complete Not Detected 10/12/16 Cryptosporidium (PCR) - Final, Complete Not Detected 10/12/16 Cyclospora cayetanensis (PCR) - Final, Complete Not Detected 10/12/16 Entamoeba histolytica (PCR) - Final, Complete Not Detected 10/12/16 Giardia lamblia (PCR) - Final, Complete Not Detected 10/12/16 Adenovirus Type F 40/41 (PCR) - Final, Complete Not Detected 10/12/16 Astrovirus (PCR) - Final, Complete Not Detected 10/12/16 Norovirus (PCR) - Final, Complete Not Detected 10/12/16 Rotavirus A (PCR) - Final, Complete Not Detected 10/12/16 Sapovirus I/II/IV/V (PCR) - Final, Complete 10/12/16 Urine Culture - Preliminary, Resulted No growth to date Result Diagram: 10/12/16 1325 10/13/16 1615 Assessment & Plan 1. Unremitting diarrhea, present on admission. Active. -IV hydration NSS 100 cc/hr, -increase the Lomotil to two tablets every 4 hours p.r.n. -stool PCR negative is negative -dietary consult for diarrhea -decadron 4 mg IV bid -discussed case with Dr. Garcia, who feels this is radiaiton induced, her xeloda pills were stopped. He recommends pt be kept in the hosp until further resolution of diarrhea. Increased the octretide.to 100 mcg Q8H SQ per his rec. 2. Dehydration present on admission, improving. -continue hydration at 100 cc/hr -BMP in AM 3. Supratherapeutic INR, poa, resolved -INR 7.96 on admit, WNL today -Continue Coumadin -Goal is 2.5 to 3.5 for mitralvalve 4. Mechanical mitral valve. On Coumadin. Present on admission. -coumadin as above. 5. Stage IIIB anal cancer, present on admission. Stable. -- Onc is consulted CODE STATUS: FULL CODE. Code sheet filled out. Disposition: To home after diarrhea and dehydration resolve The patient is admitted under inpatient status with expected length of stay greater than 2 midnights due to severity of presenting symptoms. Risk of adverse events and complexity of treatment plan. Pain Evaluation: Adequate Pain Control Resuscitation Status: CPR: Attempt Resuscitation Silva Hamilton DO Oct 14, 2016 05:34 Silva Hamilton DO Oct 14, 2016 05:34
[2016-10-14] MEDS: Ascorbic Acid 500 mg Tablet PO SCH (07:53)
[2016-10-14] MEDS: Vitamin B Complex/Vit C Tablet PO SCH (07:54)
[2016-10-14] MEDS: AMBEREN PO SCH (07:57)
[2016-10-14 12:45] VITALS: BP 146/68; PULSE 59; RESP 16; O2SAT 98
--- NOTE | 2016-10-14 15:32 | PCM.PHAPRO ---
Progress Date of Service: Oct 14, 2016 MVR, AFib Warfarin management per pharmacy Indication: mechanical heart valve. INR goal: 2.5-3.5 Home warfarin dose: 8 mg Pertinent info: - INR on admit was 7.96 due to major drug interaction with Xeloda (last dose of Xeloda documented as 10/09/16). - Patient received vitamin K 10 mg PO on 10/12/16. - Per Dr. Hamilton, will not be restarting Xeloda today. - Per WALKER Mackey, patient continues to have diarrhea. Date Oct 13-Oct 14-Oct INR 7.96 3.06 2.33 INR change -4.9 -0.73 Warf Dose none 7.5 XXXXX INR is subtherapeutic today and dropping due to previous dose of vitamin K 10 mg PO. There is concern for lingering DDI with Xeloda and increased sensitivity to warfarin due to diarrhea but will dose aggressively anyway due to high risk of blood clot and higher INR goal. Give warfarin 10 mg PO once today. Pharmacy to continue to monitor and dose warfarin daily. Thank you, Venkata Lemon Pharmacist Venkata Lemon Oct 14, 2016 15:32
--- NOTE | 2016-10-14 15:57 | NUR ---
Social Work-readiness for discharge: Data:EMR reviewed. Pt is on day 2 of hospitalization for diarrhea per H&P. Pt is not medically stable anticipate 1-2 more days. Pt resides at home with her and has been up independent in her room. No anticipated discharge needs. SW will continue to follow if needs arise. Assessment:Pt who is independent at baseline. Plan:Pt to discharge home with family when medically stable via POV. No anticipated discharge needs. SW will continue to follow if needs arise. CARA Savage
--- NOTE | 2016-10-14 16:08 | DRSVH ---
PROCEDURE: CT ABDOMEN AND PELVIS WITH CONTRAST ([id number]) INDICATIONS: abd pain, diarrhea TECHNIQUE: After the administration of oral and intravenous contrast, 5 mm thick sections acquired from the diap hragms to the symphysis. 5 mm thick coronal and sagittal reformats were performed. For radiation do se reduction, the following was used: automated exposure control, adjustment of mA and/or kV accordi ng to patient size. COMPARISON: [facility], CT, CT CHEST ABD PELVIS W CON, 07/11/2016, 16:24. FINDINGS: Image quality: Diagnostic. ABDOMEN: Lung bases: Lung bases are clear. The heart is borderline prominent in size. Postoperative changes of the mitral valve are noted, not well evaluated. No pericardial effusion is evident. Solid organs: The gallbladder is enlarged and contains at least one gallstone. Otherwise, the liver is unremarkable. The spleen, pancreas, and adrenals are within normal limits. The kidneys are uncha nged. No hydronephrosis or definite renal lesion is evident. The ureters are normal in course and c aliber. Peritoneum and bowel: The stomach and duodenum are within normal limits. Moderate thickening of the wall of the distal ileum is identified with moderate surrounding inflammation, which is new since the prior examination. The colon is within normal limits. Fluid is seen within the colon. No free flu id, loculated fluid collection or free air is evident. Previously seen subcutaneous nodules along th e anterior abdominal wall have larger resolved in the interim. Nodes and vessels: No retroperitoneal or mesenteric adenopathy. Aorta and inferior vena cava are no rmal in caliber. There is aortic atherosclerosis. Bones: Imaged osseous structures are age-appropriate and unchanged. No acute fractures or suspicious osseous lesions are evident. PELVIS: Genitourinary: Bladder wall thickness is normal. The uterus and ovaries are not enlarged. Miscellaneous: Previously noted at left perirectal/anal lymph node is no longer evident. There jonathan nues to be a hypodense lymph node within the left inguinal region, measuring up to 3.3 x 2.3 cm, prob ably not significantly changed, given differences in positioning and imaging technique. No enlarged pelvic lymph nodes are appreciated. Subcutaneous edema along the bilateral gluteal regions is noted. There no loculated fluid collections. Bones: No suspicious bony lesions. No acute pelvic fractures are identified. A focal area of scler osis involving the left iliac wing is similar to the prior study and probably represents a bone islan d. Degenerative changes of the bilateral hips are noted. IMPRESSION: 1. Prominent thickening of the wall of the terminal ileum with surrounding edema is suggestive of il eitis and clinical correlation is recommended. No bowel obstruction. 2. Enlarged left inguinal lymph node probably has not significantly changed. No new or increasing l ymph nodes are evident. Previously seen left perirectal/anal lymph node is no longer evident. 3. Cholelithiasis. Note: Findings were discussed with Dr. Hamilton at 1606 hours on 10/14/16. Dictated by: Lonnie Parkinson M.D. on 10/14/2016 at 15:27 Approved by: Lonnie Parkinson M.D. on 10/14/2016 at 16:07
--- NOTE | 2016-10-14 16:47 | NUR ---
NUTRITION ASSESSMENT: ASSESS: 60YO F admit with severe diarrhea, dehydration, noted likely radiation therapy induced per MD notes. Pt reports poor appetite but has been trying to maintain weight during treatment. Spoke with pt briefly re poor appetite and ways to increase appetite to maintain weight during chemo/rad thx. Booklet provided. Pt interested in obtaining nutrition supplements. PMHX: Recent dx Stg IIIB Anal CA receiving chemo/rad thx, afib DIET: General. PO 50-100% LABS: Glu 107, Ca 8.1, Alb 3.4 MEDS: Coumadin GI: 5 BM's WEIGHT: 104.55kg BMI: 37.2 EST.NEEDS: CANCER/OBESITY (22-25kcal/kg;1.0-1.5g/kg IBW) Kcal: 5236-3610 Pro: 60-90g NUTRITION DIAGNOSIS: (1) Inadequate oral intake related to radiation induced diarrhea,abdominal cramping per pt as evidenced by pt reported poor oral intake. INTERVENTION: (1) Spoke with pt re po intake/poor appetite. Will add Ensure to dinner tray to promote adeq kcal/pro intake. MONITOR/EVALUATE: PO intake, lab values, weight, GI status. F/U per moderate risk.
--- NOTE | 2016-10-14 19:38 | NUR ---
pain/activity Pt. continues to have lower abd/rectal pain, rated 8/10. Primarily after each loose stool. Pt. receiving prn percocet 2 tabs and prn IV diluaidid 1mg. Pt. reports pain med to be helpful. Pt. states that she is nauseated, but only until she has her bm; declined anti-nausea medication. Poor appetite, but has been able to eat about 75% of her meals. Pt. has had about 10 loose stools between 0600 AM to 1830 PM, with voids each time. States that there is milton, red blood with each stool. Pt. currently resting. Report given to Harrison Medrano RN to continue care.
--- NOTE | 2016-10-14 20:04 | NUR ---
application support administrator Administered 1mg of IV diluadid at 1552. Was scanned in pt.'s room, was not saved. Edited admin time. Charge nurse, Corby Cowart, notified. Also notified Jacki, Pharmacist.
[2016-10-14 21:24] VITALS: BP 119/69; PULSE 77; RESP 18; O2SAT 95
--- NOTE | 2016-10-14 21:37 | CONS ---
[address] [address] CONSULTATION REPORT PATIENT: LAMAR YBARRA : 1955 MR#: [id number] ADMIT: 10/12/2016 JOB ID: [id number] DATE OF SERVICE: 10/14/2016 HISTORY: The patient has been admitted since October 12, for intractable severe diarrhea and lower abdominal discomfort associated with bowel movements and some bleeding per rectum while on anticoagulation with supratherapeutic INR for replaced mitral valve. I have been seeing her for anal cancer, stage IIIB, with involvement of the inguinal and pelvic lymph nodes in the iliac area and she has been receiving concomitant chemoradiation starting September 11, 2016 with daily oral chemotherapy Xeloda as well as once every three weeks mitomycin C which was administered on September 11 and a second dose and final dose of mitomycin C on October 09. She has been having headaches and severe diarrhea. When we saw her on October 09, we asked her to hold the Xeloda tablets in case it is contributing and we hydrated her and administered an octreotide injection. She received her radiation on and Friday and continued to deteriorate so that her had contacted us on Friday and leading to the hospitalization. She has been having, at times, several bowel movements per hour. At the same time, her INR was supratherapeutic and her Coumadin was held. I have been in communication with the hospitalist team and the patient over the phone yesterday and on visit today with her she noticed that the diarrhea is only slightly better but not significantly changed. She denies any nausea, vomiting, or fevers and no severe abdominal pain. Just some cramping when she has bowel movement. She had a stool study for C. diff sent off on October 09 when we saw her in the clinic which came back negative. In the interim, she had a complete stool culture which was also negative. LABORATORY: Labs show a white count of 5.1, hemoglobin 10.8, platelets 231. Chemistry shows normal electrolytes, creatinine 0.49. Mild elevation of ALT. PHYSICAL EXAMINATION: On exam, the patient clinically does not appear severely ill or toxic, is communicating, in no distress. Her vitals have been persistently stable as well as her oxygenation. Lungs are clear to auscultation. Abdomen is not rigid, slightly tender in the lower abdomen. Bowel sounds present. ASSESSMENT AND PLAN: A 60-year-old lady with stage IIIB anal cancer undergoing concomitant chemoradiation since September 11 who has only one more week of radiation left. She has been admitted with an intractable diarrhea that has not been manageable at home despite of the measures taken when we saw her last October 09. 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 It is possible that she might have greater than usual small-bowel exposure to radiation. Her oral Xeloda chemotherapy has been on hold already since October 09, and I have spoken to Radiation Oncology today to hold further radiation and look at the radiation field and see whether there can be any modification. She does have an enlarged right iliac lymph node that is presumed to be involved and therefore the pelvis is the subject of the radiation field. I have empirically asked for her to be started on steroids for possibility of radiation-induced enteritis to calm the inflammatory process with 4 mg IV b.i.d. and a one-time dose in the emergency room at 10 mg combined with octreotide injections which we have now increased to 100 mcg every 8 hours subcu. Intravenous fluids continue. I spoke with Dr. Hamilton to obtain a CT scan of the abdomen and pelvis to evaluate the bowel wall and make sure she does not have any areas of microperforation. The abdominal exam, however, is not very concerning. For patient there has been no significant improvement over the past 24 hours in regard to her diarrhea but, at least on the level of electrolytes and lab studies, she seems to be stable. TIME SPENT: Approximately 45 minutes were spent in counseling and coordination of care.
--- NOTE | 2016-10-14 22:07 | NUR ---
DIARRHEA MEDS Pt refused Octreotide as she does not believe it is working--pt does not think her diarrhea is improving. Pt reports having diarrhea [id number]. Pt also does not want to take Lomitil. NS continuing to run at 100ml/hr, pt has high oral fluid intake as well. Will continue to monitor.
--- NOTE | 2016-10-14 22:17 | NUR ---
FEVER Initial check of VS, pts temp orally was 38.5. Pt had been drinking hot tea, so checked temporal temp which was 38. Pt also reported intermittent chills r/t pre and post diarrhea episodes. Recheck half hour later after instructing pt not to drink hot tea--oral temp was 38 and temporal 38.5. Paged Dr. Hogan--said to keep an eye on temp. Pt receiving Percocet q6h. All other VSS.
--- NOTE | 2016-10-14 22:46 | PCM.HPMED ---
Subjective Date of Service Oct 14, 2016 Primary Provider: Admitting Physician: Ephraim Evans MD Primary Care Physician: Elva Hirsch Attending Physician: Ephraim Evans MD Admit Status: Full Admit, Admit to [facility] Team Chief Complaint: Diarrhea due to radiation side effect, supratherapeutic INR, MVR, AFib History of Present Illness: This is a 60-year-old female, recently diagnosed with stage IIIB anal cancer, on chemoradiation therapy, who has had just unremitting diarrhea for 2+ weeks. The patient has been given octreotide. She had a stool diff sent which was negative. She has been taking Imodium and then Lomotil with no relief. Her INR went very high. That had to be held, INR was 10 on Friday. Repeated on 10/12, it was down to 7, and her Coumadin has been on hold. Patient also uses Percocet for pain, mostly in the perirectal/abdominal area and that has not been well controlled either, and she is worried that she may not be even absorbing the Percocet that she has been using. No fevers, no chills. No nausea, vomiting. No chest pain. Patient had a headache but that is resolved at this time. She is put on dexamethasone IV BID 4 mg and Octreotide 50 mcg Q8H IV, she has had some improvement in diarrhea. she is no longer on xeloda. She c/o lower abd pain. Review of Systems: All rOS neg except as stated in HPI Allergies Coded Allergies: No Known Allergies (Unverified , 08/19/16) Home Medications Reviewed percocet, lamotil,octreotide, coumadin, xeloda, amberen [facility] Stage IIIB anal cancer, Afib, CHF due to mitral valve dysfunction Surgical History MV commisurotomy, MV replacement Family History MAternal cousin w Breast cancer Social History Hx Alcohol Use: No (not for a long time) Hx Substance Use: No Smoking Status: Unknown if Ever Smoker Living Arrangement: with Family Additional Information SOCIAL HISTORY: The patient lives with her . Quit smoking about 15 years ago. There is no alcohol use at this time. Exam Vital Signs Vital Sign - Last Date Time Temp Pulse Resp B/P Pulse Ox O2 Delivery O2 Flow Rate FiO2 10/14/16 21:24 38.5 77 18 119/69 95 Room Air Intake and Output 10/13/16 10/13/16 10/14/16 Cumulative From/Thru 15:00 23:00 07:00 10/12/16 13:01 - 10/14/16 06:05 Intake Total 2465 ml 2185 ml 8423 ml Balance 2465 ml 2185 ml 8423 ml Intake Oral 1400 ml 960 ml 3160 ml IV Total 1065 ml 1225 ml 5263 ml # Voids 15 5 34 # Bowel Movements 15 5 34 Lab and Diagnostics Result Diagram: 10/12/16 1325 10/14/16 0545 Assessment & Plan 1. Unremitting diarrhea, present on admission. Active. -IV hydration NSS 100 cc/hr, -increase the Lomotil to two tablets every 4 hours p.r.n. -stool PCR negative is negative -dietary consult for diarrhea -decadron 4 mg IV bid -discussed case with Dr. Jensen, who feels this is radiaiton induced, her xeloda pills were stopped. He recommends pt be kept in the hosp until further resolution of diarrhea. Increased the octretide.to 100 mcg Q8H SQ per his rec. Ordered Abd CT W per Dr. Jensen's rec 2. Dehydration present on admission, improving. -continue hydration at 100 cc/hr -BMP in AM 3. Supratherapeutic INR, poa, resolved -INR 7.96 on admit, 2.33 today -Continue Coumadin -Goal is 2.5 to 3.5 for mitralvalve -coumadin per Pharmacy -Daily INR 4. Mechanical mitral valve. On Coumadin. Present on admission. -coumadin as above. 5. Stage IIIB anal cancer, present on admission. Stable. -- Onc is consulted CODE STATUS: FULL CODE. Code sheet filled out. Disposition: To home after diarrhea and dehydration resolve The patient is admitted under inpatient status with expected length of stay greater than 2 midnights due to severity of presenting symptoms. Risk of adverse events and complexity of treatment plan. Pain Evaluation: Adequate Pain Control Resuscitation Status: CPR: Attempt Resuscitation Time spent 30 min Silva Hamilton DO Oct 14, 2016 22:46
[2016-10-15] MEDS: 0.9% Sodium Chloride 1,000 ML IV SCH ×3 (01:38→20:36)
[2016-10-15] MEDS: HYDROmorphone 1 mg/mL Inj IVPUSH PRN ×3 (01:57→09:41)
[2016-10-15] MEDS: oxyCODONE-Acetamin 5-325 mg Tablet PO PRN ×4 (02:08→20:35)
[2016-10-15 02:09] VITALS: BP 122/68; PULSE 99; RESP 18; O2SAT 95
[2016-10-15 06:04] VITALS: BP 103/56; PULSE 70; RESP 18; O2SAT 97
[2016-10-15 07:50] LABS: INR 5.82 ratio
--- NOTE | 2016-10-15 08:00 | NUR ---
Critical lab values and Potassium Pro-time 64.5 and INR 5.[address] Hamilton was notified. No new orders. Potassium 3.1. Dr. Hamilton stated she will order supplement. Waiting for CPOE order.
[2016-10-15] MEDS: Ascorbic Acid 500 mg Tablet PO SCH (08:03)
[2016-10-15] MEDS: Vitamin B Complex/Vit C Tablet PO SCH (08:03)
[2016-10-15] MEDS: AMBEREN PO SCH (08:04)
--- NOTE | 2016-10-15 08:18 | PCM.PNMED ---
Subjective Date of Service Oct 15, 2016 Subjective She has had fewer bowel movements yesterday 15 than day before. She says she declined octreotide as she gets no relief from it. Endorsing lower abd cramping that is crampy R>L. She says she is hungry and wanting to eat. SAys he has slept much better last night. Exam Vital Signs Vital Sign - Last Date Time Temp Pulse Resp B/P Pulse Ox O2 Delivery O2 Flow Rate FiO2 10/15/16 06:04 37.3 70 18 103/56 97 Room Air 10/15/16 02:09 2.00 Intake and Output 10/14/16 10/14/16 10/15/16 Cumulative From/Thru 15:00 23:00 07:00 10/12/16 13:01 - 10/15/16 06:04 Intake Total 2268 ml 1996 ml 51797 ml Balance 2268 ml 1996 ml 59726 ml Intake Oral 1520 ml 820 ml 5500 ml IV Total 748 ml 1176 ml 7187 ml # Voids 8 6 48 # Bowel Movements 10 5 49 Exam General: NAD HEENT: NCAT Heart: Miitral valve click is audible, RRR Lungs: CTA, no crackles or wheezes Abd: RLQ>LLQ pain, normal BS, soft : [place], burnt appearing perianal area tissue Neuro: No focal deficits IVs and Medications IV Fluids NSS 100 cc/hr Medications Reviewed: Medications were reviewed in detail Lab and Diagnostics Result Diagram: 10/12/16 1325 10/15/16 06 X-Rays, CTs and MRIs [facility] Diagnostic Imaging Department [place], [place] [id number] Patient Name: LAMAR YBARRA MR#: [id number] Location: [facility] [place] Ordering Phys: Silva Hamilton DO Date of Service: 10/14/16 132 PROCEDURE: CT ABDOMEN AND PELVIS WITH CONTRAST ([id number]) INDICATIONS: abd pain, diarrhea TECHNIQUE: After the administration of oral and intravenous contrast, 5 mm thick sections acquired from the diaphragms to the symphysis. 5 mm thick coronal and sagittal reformats were performed. For radiation dose reduction, the following was used : automated exposure control, adjustment of mA and/or kV according to patient size. COMPARISON: [facility], CT, CT CHEST ABD PELVIS W CON, 07/11/2016, 16:24. FINDINGS: Image quality: Diagnostic. ABDOMEN: Lung bases: Lung bases are clear. The heart is borderline prominent in size. Postoperative changes of the mitral valve are noted, not well evaluated. No pericardial effusion is evident. Solid organs: The gallbladder is enlarged and contains at least one gallstone. Otherwise, the liver is unremarkable. The spleen, pancreas, and adrenals are within normal limits. The kidneys are unchanged. No hydronephrosis or definite renal lesion is evident. The ureters are normal in course and caliber. Peritoneum and bowel: The stomach and duodenum are within normal limits. Moderate thickening of the wall of the distal ileum is identified with moderate surrounding inflammation, which is new since the prior examination. The colon is within normal limits. Fluid is seen within the colon. No free fluid, loculated fluid collection or free air is evident. Previously seen subcutaneous nodules along the anterior abdominal wall have larger resolved in the interim. Nodes and vessels: No retroperitoneal or mesenteric adenopathy. Aorta and inferior vena cava are normal in caliber. There is aortic atherosclerosis. Bones: Imaged osseous structures are age-appropriate and unchanged. No acute fractures or suspicious osseous lesions are evident. PELVIS: G IMPRESSION: 1. Prominent thickening of the wall of the terminal ileum with surrounding edema is suggestive of ileitis and clinical correlation is recommended. No bowel obstruction. 2. Enlarged left inguinal lymph node probably has not significantly changed. No new or increasing lymph nodes are evident. Previously seen left perirectal/ anal lymph node is no longer evident. 3. Cholelithiasis. Note: Findings were discussed with Dr. Hamilton at 1606 hours on 10/14/16. Dictated by: Lonnie Parkinson M.D. on 10/14/2016 at 15:27 Approved by: Lonnie Parkinson M.D. on 10/14/2016 at 16:07 Assessment & Plan 1. Unremitting diarrhea, present on admission. Active. -IV hydration NSS 100 cc/hr, -increase the Lomotil to two tablets every 4 hours p.r.n. -stool PCR negative is negative -dietary consult for diarrhea -decadron 4 mg IV bid : restarted today, looks like only one dose was given -discussed case with Dr. Garcia, who feels this is radiation induced, her xeloda pills were stopped. He recommends pt be kept in the hosp until further resolution of diarrhea. Increased the octretide.to 100 mcg Q8H SQ per his rec. --Ordered Abd CT W per Dr. Garcia's rec on 10/15: Showed concern for enteritis, Dr. Garcia feels this is secondary to radiation as well. 2. Fever on 10/15 evening: -- Cipro/flagyl were ordered, alter changed by the pharmacy to zosyn due to concern for supra therapeutic INR. -- Cont IV steroids -- Will order blood cx if fever comes back 3 Dehydration present on admission, improving. -continue hydration at 100 cc/hr -BMP in AM 4. Supratherapeutic INR, poa, resolved -INR 7.96 on admit, 2.33 today -Goal is 2.5 to 3.5 for mitralvalve -coumadin per Pharmacy -Daily INR: supratherapeutic today>5 5. Mechanical mitral valve. On Coumadin. Present on admission. -coumadin as above. 6. Stage IIIB anal cancer, present on admission. Stable. -- Onc is consulted CODE STATUS: FULL CODE. Code sheet filled out. Disposition: To home after diarrhea and dehydration resolve The patient is admitted under inpatient status with expected length of stay greater than 2 midnights due to severity of presenting symptoms. Risk of adverse events and complexity of treatment plan. Pain Evaluation: Adequate Pain Control Resuscitation Status: CPR: Attempt Resuscitation Time spent 25 min Silva Hamilton DO Oct 15, 2016 08:18
[2016-10-15] MEDS ORDERED: Potassium Chloride 20 mEq SR Tablet PO ONE (08:20)
[2016-10-15 09:19] LABS: Mean Corpuscular Volume 89.3 fL (81-100)
[2016-10-15 10:07] VITALS: BP 122/56; PULSE 90; RESP 18; O2SAT 95
[2016-10-15] MEDS: Dexamethasone 4 mg/mL Inj IVPUSH SCH ×2 (10:43→20:36)
[2016-10-15] MEDS ORDERED: Piperacillin-Tazo 3.375 Gm Inj 3.375 GM in Dextrose 5% Minibag Plus 50 ML IV ONE (11:05)
--- NOTE | 2016-10-15 11:55 | NUR ---
Social Work: Continued Discharge Planning D: EMR reviewed. Pt is on day 3 of hospitalization. Pt is being follow by Oncology. Per MD in AM multi-disciplinary rounds, pt is continuing to experience pain from radiation and had a fever last night. Pt's INR is up. Due to these reasons, pt is likely to discharge in 1-2 days. Pt will transport home with spouse via POV when medically stable. SW does not anticipate any discharge needs at this time but will continue to follow if needs arise. A: Pt who is independent at baseline. P: Pt will transport home with spouse via POV when medically stable. SW does not anticipate any discharge needs at this time but will continue to follow if needs arise. CARA Mayfield
--- NOTE | 2016-10-15 13:29 | PCM.PHAPRO ---
Progress Date of Service: Oct 15, 2016 Warfarin dosing INR = 5.82, hct = 29.9, plt = 213. Pt continues warfarin therapy for mitral valve replacement. INR today supratherapeutic. Due to a rapid increase in INR will hold warfarin dose tonight. Pt's diarrhea continues. INR ordered. Pharmacy will continue to follow this pt's warfarin therapy. Margot Nelson PharmD Oct 15, 2016 13:29
[2016-10-15 14:15] VITALS: BP 119/61; PULSE 89; RESP 18; O2SAT 95
--- NOTE | 2016-10-15 14:42 | CCS NOTE ---
[facility] [address] [address] MEDICAL ONCOLOGY OFFICE NOTE PATIENT: LAMAR YBARRA : 1955 MR#: [id number] DATE: 10/12/2016 JOB ID: [id number] DATE: 10/15/2016 SUBJECTIVE: The patient has noticed some degree of improvement in regard to frequency of bowel movements through last night. She had to get up only three times, she says, rather than hourly. She had declined the octreotide injection as she thought that it has not made a huge difference and she wanted to avoid shot. It appears, however, that it did help to reduce the frequency of stools. She has, in review of vital signs in [facility], an episode of low-grade fever of 38.5 last night around 9 p.m. which has spontaneously resolved. Still no nausea, vomiting. No worsening of lower abdominal discomfort. IMAGING: CT scan of abdomen and pelvis with contrast of yesterday afternoon. I personally reviewed that with Dr. Crump of Radiology. It showed no evidence of perforation or diffuse bowel wall thickening but rather an area of thickening of the terminal and distal ileum with surrounding edema. No free air. No evidence of toxic megacolon. In review of the baseline CT scan, the right iliac lymph node that was in the field of radiation lies above the junction of the distal ileum and therefore this field is involving the radiation field. LABS: CBC was not done yet. Order was added by the hospitalist team and came back later with a white count of 2.5, hemoglobin 9.7, platelets 213. Chemistry shows stable electrolytes except for low magnesium of 1.5 and potassium of 3.1. On exam, she is in no apparent distress, communicating, and stable vital signs. O2 sat 95% on room air. Currently afebrile. Last INR of this morning was 5.8, yesterday was 2.3. ASSESSMENT AND PLAN: A 60-year-old lady with anal cancer stage IIIB towards the end of chemoradiation as discussed in my note of yesterday. She has been admitted with profound and nonresolving diarrhea and also some bleeding from the anal area where the radiation field has been mostly focusing in the setting of supratherapeutic INR. There seemed to be a slight stabilization of the frequency of stool since yesterday. The CT scan of abdomen and pelvis did not show any evidence of perforation or diffuse ischemic bowel, but there was an area of bowel wall thickening projecting to the distal and terminal ileum. 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 Her abdomen does not show any signs of peritonitis, but she did have a slight temperature of 38.5, and therefore, I recommended to empirically start her on antibiotics and Dr. Hamilton and I spoke about that. She is starting her on ciprofloxacin and Flagyl. Her white count came back at 2.5 but no differential was performed. That needs to be added to monitor the neutrophil count. She did receive last dose of mitomycin C on October 09; therefore, she might become neutropenic in the coming days. The last week of radiation therapy remains on hold. Her dexamethasone was not continued yesterday, which is now corrected at 4 mg IV b.i.d. for presumed radiation enteritis.
--- NOTE | 2016-10-15 16:02 | NUR ---
GI and Pain No nausea. She was able to hold down food and fluids. PRN Morphine, PRN Percocet, and ice pack were used for perineum pain. Pt. last reported pain level was 3/10. She continue to have diarrhea (loose yellow brown stools). She refused PRN Lomotil and YVES Octreotide, she explained, "I don't think they help." Dr. Hamilton and Dr. Garcia aware of her refusal of Lomotil and Octreotide.
[2016-10-15 18:02] VITALS: BP 116/65; PULSE 63; RESP 18; O2SAT 95
[2016-10-15] MEDS ORDERED: Dexamethasone 4 mg/mL Inj IVPUSH SCH (20:30)
[2016-10-15] MEDS ORDERED: metroNIDAZOLE Inj 500 MG in IV Premix 1 EACH IV SCH (20:30)
[2016-10-15] MEDS ORDERED: Ciprofloxacin Inj 400 MG in IV Premix 1 EACH IV SCH (20:30)
[2016-10-15] MEDS: Piperacillin-Tazo 3.375 Gm Inj 3.375 GM in Dextrose 5% Minibag Plus 50 ML IV SCH (20:36)
[2016-10-15 20:43] VITALS: BP 147/65; PULSE 69; RESP 18; O2SAT 97
[2016-10-16] VITALS (8 sets, daily range): BP systolic 127–153; BP diastolic 63–84; PULSE 60–70; RESP 18–22; O2SAT 96–98
[2016-10-16] MEDS: oxyCODONE-Acetamin 5-325 mg Tablet PO PRN ×4 (02:59→22:40)
[2016-10-16] MEDS: Piperacillin-Tazo 3.375 Gm Inj 3.375 GM in Dextrose 5% Minibag Plus 50 ML IV SCH ×3 (02:59→19:18)
--- NOTE | 2016-10-16 04:15 | NUR ---
PAIN/BM Pt reports stinging pain in perianal area that at worst is 9/10, occurs immediately after BM. Pt reports some cramping pain in abdomen as well r/t timing of BM. Pt receiving q4h Morphine 4mg and q6h Percocet 2 tabs for pain. Pain is managed fairly effectively, though pt may ask for pain meds up to 45 minutes before next dose can be administered depending on the severity of diarrhea. Pt states overnight diarrhea had not improved. Number of BMs to be recorded on I&Os. VSS, labs to be drawn, continuing care.
[2016-10-16] MEDS: 0.9% Sodium Chloride 1,000 ML IV SCH ×2 (05:30→16:33)
[2016-10-16 08:03] LABS: BASOPHILS % (AUTO) 0 % (0-3); EOSINOPHILS % (AUTO) 0 % (0-5); MONOCYTES % (AUTO) 13.9 % (4-12); Mean Corpuscular Hemoglobin 28.8 pg (27.0-35.0); Mean Corpuscular Volume 87.9 fL (81-100); NEUTROPHILS % (AUTO) 80.5 % (40-74); Platelet Count 181 bil/L (150-400)
[2016-10-16 08:35] LABS: INR 10.63 ratio
[2016-10-16] MEDS: Ascorbic Acid 500 mg Tablet PO SCH (08:43)
[2016-10-16] MEDS: Dexamethasone 4 mg/mL Inj IVPUSH SCH ×2 (08:44→20:22)
[2016-10-16] MEDS: AMBEREN PO SCH (08:44)
[2016-10-16] MEDS: Vitamin B Complex/Vit C Tablet PO SCH (08:44)
[2016-10-16] MEDS ORDERED: Potassium Chloride 20 mEq SR Tablet PO ONE (09:40)
[2016-10-16] MEDS ORDERED: Phytonadione (Adult) 10 mg/1 mL Inj PO ONE (09:55)
[2016-10-16] MEDS ORDERED: 0.9% Sodium Chloride 250 ML IV SCH (10:00)
--- NOTE | 2016-10-16 13:11 | PCM.PHAPRO ---
Progress Date of Service: Oct 16, 2016 Warfarin dosing Date Oct 13-Oct 14Oct 15-Oct 16-Oct INR 7.96 3.06 2.33 5.82 10.63 INR change -4.9 -0.73 3.49 4.81 Warf Dose none 7.5 10 MG HOLD HOLD A/ INR is supratherapeutic at 10.63 P/ 5mg of oral vitamin K was ordered and warfarin is being held today. Adolfo Garces Oct 16, 2016 13:11
--- NOTE | 2016-10-16 16:00 | NUR ---
pain, bm, K+, elevated INR pt. c/o -12/12 perianal pain with burning sensation after bm. Pt. states bm has slowed down, with several hours in between. Pt. placing calmoseptine on site, sitting on ice at times, and receiving prn morphine and percocet with mod relief; pt. states -09/11 has been about tolerable for her. K+ 3.3; potassium chloride 20 meq po given x1. INR elevated to 10.63; notified; vitamin k mg po given x1; 2 units ffp transfused; pt. tolerated well; vss; no s/sx adverse reaction with blood product. at bedside assisting with pt. care.
[2016-10-16] MEDS ORDERED: Cholestyramine Resin Powder 4 Gm Packet PO ONE (16:50)
[2016-10-16 17:21] LABS: INR 3.71 ratio
--- NOTE | 2016-10-16 17:50 | CCS NOTE ---
[facility] [address], [address] [address] MEDICAL ONCOLOGY OFFICE NOTE PATIENT: LAMAR YBARRA : 1955 MR#: [id number] DATE: 10/12/2016 JOB ID: [id number] DATE: 10/16/2016 SUBJECTIVE: The patient has had no fevers over the per 24 hours and no nausea or vomiting. The frequency of bowel movements has diminished, but they are still watery. Over the first half of the day she has had 3-4 bowel movements and had also 2-3 bowel movements last night. Also, her INR was highly elevated again after reinitiation of Coumadin and therefore with an INR of 10 the patient has been given FFP this morning. LABORATORIES: Show a white count of 3.2 with 80% neutrophils, hemoglobin 9.0, platelets 185. Sodium 137, creatinine 0.47. OBJECTIVE: On exam, abdomen is still relatively soft. No sign of acute abdomen or peritonitis. ASSESSMENT: A 60-year-old lady with stage IIIB anal cancer on chemoradiation. 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 With dexamethasone 4 mg twice daily since admission on October 13, and octreotide, things have somewhat improved. The patient has opted not to receive octreotide anymore and it can be discontinued. I discussed with her that since she has a rather focal area of inflammation affecting that area of ileum, there might be a biliary component due to lack of reabsorption and therefore a one time test dose of cholestyramine might be a useful approach to see whether we can control the runny stool. I discussed that with Dr. Hamilton and will give a one time dose of 4 g rather than on a scheduled basis to avoid constipation since the sphincter area is pretty inflamed and sore from radiation and we definitely do not want any additional pain with defecation due to over-correction of her diarrhea. Antibiotics currently continue. She has not had any further fevers and has not had any further deterioration of her white count, which is currently acceptable. I suggest to reduce the dexamethasone to 2 mg twice daily.
--- NOTE | 2016-10-16 23:47 | PCM.PNMED ---
Subjective Date of Service Oct 16, 2016 Subjective Patient is seen a nd examined, she says diarrhea has improved but not resolved, abd cramps improved as well. INR>10 this AM/. Exam Vital Signs Vital Sign - Last Date Time Temp Pulse Resp B/P Pulse Ox O2 Delivery O2 Flow Rate FiO2 10/16/16 05:41 36.6 60 19 127/68 96 Room Air 10/15/16 02:09 2.00 Intake and Output 10/15/16 10/15/16 10/16/16 Cumulative From/Thru 15:00 23:00 07:00 10/12/16 13:01 - 10/16/16 05:41 Intake Total 2681 ml 2135 ml 10193 ml Output Total 10 ml 10 ml Balance 2681 ml 2125 ml 82419 ml Intake Oral 1550 ml 880 ml 7930 ml IV Total 1131 ml 1255 ml 9573 ml Output Urine Total 10 ml 10 ml # Voids 10 58 # Bowel Movements 10 7 66 Exam General NAD Abd: normal bowel sounds, soft, non tender Ext: 2+ pitting edema Neck: trachea is central Heart: Mitral valve click is audible, RRR Lungs: CTA, no crackles or wheezes Neuro: no focal deficits, aoax3 Psych: neg for anxiety Skin: warm and dry IVs and Medications Medications Reviewed: Medications were reviewed in detail Lab and Diagnostics Result Diagram: 10/15/16 0625 10/15/16 0625 X-Rays, CTs and MRIs [facility] Diagnostic Imaging Department [place], [place] [id number] Patient Name: LAMAR YBARRA MR#: [id number] Location: [facility] [place] Ordering Phys: Silva Hamilton DO Date of Service: 10/14/16 1325 PROCEDURE: CT ABDOMEN AND PELVIS WITH CONTRAST (PNL-7102) INDICATIONS: abd pain, diarrhea TECHNIQUE: After the administration of oral and intravenous contrast, 5 mm thick sections acquired from the diaphragms to the symphysis. 5 mm thick coronal and sagittal reformats were performed. For radiation dose reduction, the following was used : automated exposure control, adjustment of mA and/or kV according to patient size. COMPARISON: [facility], CT, CT CHEST ABD PELVIS W CON, 07/11/2016, 16:24. FINDINGS: Image quality: Diagnostic. ABDOMEN: Lung bases: Lung bases are clear. The heart is borderline prominent in size. Postoperative changes of the mitral valve are noted, not well evaluated. No pericardial effusion is evident. Solid organs: The gallbladder is enlarged and contains at least one gallstone. Otherwise, the liver is unremarkable. The spleen, pancreas, and adrenals are within normal limits. The kidneys are unchanged. No hydronephrosis or definite renal lesion is evident. The ureters are normal in course and caliber. Peritoneum and bowel: The stomach and duodenum are within normal limits. Moderate thickening of the wall of the distal ileum is identified with moderate surrounding inflammation, which is new since the prior examination. The colon is within normal limits. Fluid is seen within the colon. No free fluid, loculated fluid collection or free air is evident. Previously seen subcutaneous nodules along the anterior abdominal wall have larger resolved in the interim. Nodes and vessels: No retroperitoneal or mesenteric adenopathy. Aorta and inferior vena cava are normal in caliber. There is aortic atherosclerosis. Bones: Imaged osseous structures are age-appropriate and unchanged. No acute fractures or suspicious osseous lesions are evident. PELVIS: G IMPRESSION: 1. Prominent thickening of the wall of the terminal ileum with surrounding edema is suggestive of ileitis and clinical correlation is recommended. No bowel obstruction. 2. Enlarged left inguinal lymph node probably has not significantly changed. No new or increasing lymph nodes are evident. Previously seen left perirectal/ anal lymph node is no longer evident. 3. Cholelithiasis. Note: Findings were discussed with Dr. Hamilton at 1606 hours on 10/14/16. Dictated by: Lonnie Parkinson M.D. on 10/14/2016 at 15:27 Approved by: Lonnie Parkinson M.D. on 10/14/2016 at 16:07 Assessment & Plan Supratherapeutic INR, poa, active -INR 7.96 on admit, 2.33 today -Goal is 2.5 to 3.5 for mitralvalve -coumadin per Pharmacy -Daily INR: supratherapeutic today>5 -- INR>10, gave vit K 5 mg PO, 2 units FFP, f/u INR in the evening Hypokalemia -- Repleted with 30 meq PO Unremitting diarrhea, present on admission. Active. Improving slowly -IV hydration NSS 100 cc/hr, -increase the Lomotil to two tablets every 4 hours p.r.n. -stool PCR negative is negative -dietary consult for diarrhea -decadron 4 mg IV bid : restarted 10/15 looks like only one dose was given on -discussed case with Dr. Garcia, who feels this is radiation induced, her xeloda pills were stopped. He recommends pt be kept in the hosp until further resolution of diarrhea. Increased the octretide.to 100 mcg Q8H SQ per his rec. Will d/c as pt is not takig it --Ordered Abd CT W per Dr. Garcia's rec on 10/15: Showed concern for enteritis, Dr. Garcia feels this is secondary to radiation as well. -- discussed switching to PO pain meds this evening -- Cholestyramine was given per Dr. Garcia's recs 2. Fever on 10/15 evening: -- Cipro/flagyl were ordered, alter changed by the pharmacy to zosyn due to concern for supra therapeutic INR. -- Cont IV steroids -- Will order blood cx if fever comes back 3 Dehydration present on admission, improving. -continue hydration at 100 cc/hr -BMP in AM 5. Mechanical mitral valve. On Coumadin. Present on admission. -coumadin as above. 6. Stage IIIB anal cancer, present on admission. Stable. -- Onc is consulted CODE STATUS: FULL CODE. Code sheet filled out. Disposition: To home after diarrhea and dehydration resolve The patient is admitted under inpatient status with expected length of stay greater than 2 midnights due to severity of presenting symptoms. Risk of adverse events and complexity of treatment plan. Pain Evaluation: Adequate Pain Control Resuscitation Status: CPR: Attempt Resuscitation Time spent 25 JoySilvaheather SARAVIA Oct 16, 2016 07:49
[2016-10-17 00:03] VITALS: BP 117/61; PULSE 64; RESP 16; O2SAT 98
[2016-10-17] MEDS: 0.9% Sodium Chloride 1,000 ML IV SCH (02:30)
[2016-10-17] MEDS: Piperacillin-Tazo 3.375 Gm Inj 3.375 GM in Dextrose 5% Minibag Plus 50 ML IV SCH (03:35)
[2016-10-17] MEDS ORDERED: HYDROmorphone 1 mg/mL Inj IVPUSH PRN ×2 (04:00→08:00)
--- NOTE | 2016-10-17 04:33 | NUR ---
Pain Medication Pt not receiving adequate relief with Morphine 4mg q4 and Percocet q6. Getting up to restroom frequently and having BM's increases anal pain tremendously, pt crying and extremely uncomfortable, stinging sensation. Paged doctor, he ordered change from Morphine to Dilaudid 2mg q4. Administered to pt who experienced immediately relief. Will check on patient frequently and monitor for pain and s/e of medication.
[2016-10-17 07:40] LABS: INR 3.19 ratio
[2016-10-17] MEDS: AMBEREN PO SCH (07:57)
[2016-10-17] MEDS: Vitamin B Complex/Vit C Tablet PO SCH (07:57)
[2016-10-17] MEDS: Dexamethasone 4 mg/mL Inj IVPUSH SCH (07:58)
[2016-10-17] MEDS: Ascorbic Acid 500 mg Tablet PO SCH (07:58)
--- NOTE | 2016-10-17 08:47 | PCM.PNMED ---
Subjective Date of Service Oct 17, 2016 Subjective Patient is seen and examined she appears to be fairly comfortable, states she had 8 bowel movements and needed 2 mg of IV Dilaudid earlier today. She states that the pain became very intolerable after a BM and she did not have anything to take at the time. Overall she says she is feeling much better. Exam Vital Signs Vital Sign - Last Date Time Temp Pulse Resp B/P Pulse Ox O2 Delivery O2 Flow Rate FiO2 10/17/16 00:03 36.6 64 16 117/61 98 Room Air 10/15/16 02:09 2.00 Intake and Output 10/16/16 10/16/16 10/17/16 Cumulative From/Thru 15:00 23:00 07:00 10/12/16 13:01 - 10/16/16 18:07 Intake Total 540 ml 1839 ml 02808 ml Output Total 10 ml Balance 540 ml 1839 ml 82402 ml Intake Oral 800 ml 8730 ml IV Total 100 ml 1039 ml 90989 ml FFP 440 ml 440 ml Output Urine Total 10 ml # Voids 8 66 # Bowel Movements 8 74 Exam Gen.: No acute distress sitting up in the chair HEENT: NCAT Heart: Mitral valve click is heard and regular rate and rhythm Lungs: Clear to auscultation no crackles or wheezes Abdomen: Soft nontender nondistended, normal bowel sounds Extremities: 2+ edema Neuro: No focal deficits deficits Psych: Negative for anxiety and agitation affect is pleasant mood is cooperative Neck: Negative for JVD, trachea central Skin warm and dry IVs and Medications IV Fluids 30 cc/hr NSS Medications Reviewed: Medications were reviewed in detail Lab and Diagnostics Result Diagram: 10/16/1672210/16/1623 X-Rays, CTs and MRIs [facility] Diagnostic [place] [address] Patient Name: LAMAR YBARRA MR#: [id number] Location: [facility] [place] Ordering Phys: Silva Hamilton DO Date of Service: 10/14/16 1325 PROCEDURE: CT ABDOMEN AND PELVIS WITH CONTRAST ([id number]) INDICATIONS: abd pain, diarrhea TECHNIQUE: After the administration of oral and intravenous contrast, 5 mm thick sections acquired from the diaphragms to the symphysis. 5 mm thick coronal and sagittal reformats were performed. For radiation dose reduction, the following was used : automated exposure control, adjustment of mA and/or kV according to patient size. COMPARISON: [facility], CT, CT CHEST ABD PELVIS W CON, 07/11/2016, 16:24. FINDINGS: Image quality: Diagnostic. ABDOMEN: Lung bases: Lung bases are clear. The heart is borderline prominent in size. Postoperative changes of the mitral valve are noted, not well evaluated. No pericardial effusion is evident. Solid organs: The gallbladder is enlarged and contains at least one gallstone. Otherwise, the liver is unremarkable. The spleen, pancreas, and adrenals are within normal limits. The kidneys are unchanged. No hydronephrosis or definite renal lesion is evident. The ureters are normal in course and caliber. Peritoneum and bowel: The stomach and duodenum are within normal limits. Moderate thickening of the wall of the distal ileum is identified with moderate surrounding inflammation, which is new since the prior examination. The colon is within normal limits. Fluid is seen within the colon. No free fluid, loculated fluid collection or free air is evident. Previously seen subcutaneous nodules along the anterior abdominal wall have larger resolved in the interim. Nodes and vessels: No retroperitoneal or mesenteric adenopathy. Aorta and inferior vena cava are normal in caliber. There is aortic atherosclerosis. Bones: Imaged osseous structures are age-appropriate and unchanged. No acute fractures or suspicious osseous lesions are evident. PELVIS: G IMPRESSION: 1. Prominent thickening of the wall of the terminal ileum with surrounding edema is suggestive of ileitis and clinical correlation is recommended. No bowel obstruction. 2. Enlarged left inguinal lymph node probably has not significantly changed. No new or increasing lymph nodes are evident. Previously seen left perirectal/ anal lymph node is no longer evident. 3. Cholelithiasis. Note: Findings were discussed with Dr. Hamilton at 1606 hours on 10/14/16. Dictated by: Lonnie Parkinson M.D. on 10/14/2016 at 15:27 Approved by: Lonnie Parkinson M.D. on 10/14/2016 at 16:07 Assessment & Plan Supratherapeutic INR, poa, active -INR 7.96 on admit, 2.33 today -Goal is 2.5 to 3.5 for mitralvalve -coumadin per Pharmacy -Daily INR: supratherapeutic today>5 --10/16 INR>10, gave vit K 5 mg PO, 2 units FFP, f/u INR in the evening INR is 3.69 --INR is 3.19 on 10/17 Hypokalemia, POA -- Repleted as needed Unremitting diarrhea, present on admission. Active. Improving slowly -IV hydration NSS 100 cc/hr, -increase the Lomotil to two tablets every 4 hours p.r.n. -stool PCR negative is negative -dietary consult for diarrhea -decadron 4 mg IV bid : restarted 10/15 looks like only one dose was given on -discussed case with Dr. Garcia, who feels this is radiation induced, her xeloda pills were stopped. He recommends pt be kept in the hosp until further resolution of diarrhea. Increased the octretide.to 100 mcg Q8H SQ per his rec. Will d/c as pt is not takig it --Ordered Abd CT W per Dr. Garcia's rec on 10/15: Showed concern for enteritis, Dr. Garcia feels this is secondary to radiation as well. -- Cholestyramine was given per Dr. Garcia's recs -- She had 8 bowel movements10/16 night -- Increase oxycodone to every 4 hr and 1-2 tablets better pain control -- Switched to PO dexamethasone 4 mg QD xtotal 4 doses and stop. Fever on 10/15 evening: -- Cipro/flagyl were ordered, alter changed by the pharmacy to zosyn due to concern for supra therapeutic INR. -- Cont IV steroids -- Will order blood cx if fever comes back -- We will discuss discontinuation of antibiotics with , he is agreeable to switching her to Augmentin Dehydration present on admission, improving. -continue hydration at 30 cc/hr Mechanical mitral valve. On Coumadin. Present on admission. -coumadin as above. Stage IIIB anal cancer, present on admission. Stable. -- Onc is consulted CODE STATUS: FULL CODE. Code sheet filled out. Disposition: To home after diarrhea and dehydration resolve The patient is admitted under inpatient status with expected length of stay greater than 2 midnights due to severity of presenting symptoms. Risk of adverse events and complexity of treatment plan. Pain Evaluation: Adequate Pain Control VTE Mechanical Devices: Intermittant Pneumatic CD Resuscitation Status: CPR: Attempt Resuscitation Time spent 25 min Silva Hamilton DO Oct 17, 2016 08:47
[2016-10-17] MEDS ORDERED: oxyCODONE-Acetamin 5-325 mg Tablet PO PRN (09:00)
[2016-10-17 11:10] VITALS: BP 118/66; PULSE 62; RESP 16; O2SAT 97
[2016-10-17] MEDS ORDERED: Cholestyramine Resin Powder 4 Gm Packet PO SCH (11:15)
[2016-10-17] MEDS: Amoxicillin-Clav 875-125 mg Tablet PO SCH ×2 (13:23→20:18)
--- NOTE | 2016-10-17 13:30 | PCM.PHAPRO ---
Progress Warfarin dosing 13-Waqas 14-Waqas 15-Oct 5.82 10.63 3.19 3.49 4.81 -7.44 HOLD HOLD 2.5 Leiv Beckett Pharm.D Oct 17, 2016 13:30
[2016-10-17 15:22] VITALS: BP 165/78; PULSE 66; RESP 24; O2SAT 98
[2016-10-17] MEDS: HYDROmorphone 1 mg/mL Inj IVPUSH PRN ×2 (15:34→23:02)
--- NOTE | 2016-10-17 15:43 | NUR ---
Pain Patient reports only short term relief of pain with oxycodone 10mg. IV Dilaudid d/c'dGodfrey CORONADO made aware and order received for PO Dilaudid 1mg. Patient reports no relief after 1 hr, and is now crying in 01/12 pain. Hospitalist syed, order received for IV Dilaudid 1mg. Addendum: 10/17/16 at 1652 by NATA BAER RN Pt reports pain relief and states pain is 5/10. Pt resting comfortably.
--- NOTE | 2016-10-17 16:31 | PROG NOTE ---
[address] [address] PROGRESS NOTE PATIENT: LAMAR YBARRA : 1955 MR#: [id number] ADMIT: 10/12/2016 JOB ID: [id number] DATE: 10/17/2016 SUBJECTIVE: The patient received one dose of cholestyramine yesterday evening around 6 p.m. She did experience that the stool was less runny after that earlier this morning. She still had several bowel movements overnight. No fevers. No nausea or vomiting. She has been out of the bed but her feet have been hurting when she ambulates due to bilateral edema. PHYSICAL EXAMINATION: On examination, her vitals are stable. She has no fever. Abdomen is soft, minimal tenderness on palpation. She has 2+ pitting edema in her ankles and lower legs bilaterally. LABORATORIES: Hematocrit was checked today but a CBC has not been performed. Yesterday she had an adequate white count. Kidney function has remained normal. ASSESSMENT AND PLAN: A 60-year-old lady with a history B anal cancer has been treated with chemoradiation. She was admitted on October 13 with intractable diarrhea up to 25 bowel movements per day which had not responded to outpatient measures. 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 There seems to have been further improvement although she still has frequent bowel movements, but they have been less runny after the one dose of cholestyramine yesterday. I spoke with the patient as well as Dr. Hamilton of hospitalist team to place her for another day or two on cholestyramine 4 g twice daily. I also suggested to cut down the dexamethasone now to only 4 mg once a day in the morning for another two days and then discontinue. Her IV antibiotics can be switched to Augmentin, and if her condition further improves, she can be considered for discharge either tomorrow or on Friday per hospitalist discretion. I will be out of town tomorrow and will followup with her in the clinic after her discharge. She has eight more fractions of radiation that has been now held and can be considered to be delivered after recovery. I anticipate that she will need to be off radiation for at least two weeks. I encouraged her to start ambulating more but she has sustained quite a bit of fluid retention in her legs in these past few days bilaterally. IV fluids have been decreased now to 30 cc an hour.
[2016-10-17] MEDS: Cholestyramine Resin Powder 4 Gm Packet PO SCH (21:37)
[2016-10-18 01:10] VITALS: BP 123/74; PULSE 68; RESP 17; O2SAT 96
--- NOTE | 2016-10-18 02:33 | NUR ---
Pain/Diarrhea Pt experiencing relief with IV dilaudid, roxicodone for breakthru pain. Pt expressed wanting to "stretch it out" and see if she can handle less round the clock coverage. Pt was successful at this during the evening, and kept waiting "another 30min" just to see. Frequent diarrhea continues, although patient reports improvement in formation of stools and decreased liquid. Some blood still present in stool.
[2016-10-18] MEDS: HYDROmorphone 1 mg/mL Inj IVPUSH PRN ×4 (02:52→19:46)
[2016-10-18] MEDS: 0.9% Sodium Chloride 1,000 ML IV SCH (02:53)
[2016-10-18 06:28] LABS: INR 4.07 ratio
[2016-10-18 07:57] LABS: Mean Corpuscular Hemoglobin 29.7 pg (27.0-35.0); Mean Corpuscular Volume 89.2 fL (81-100)
[2016-10-18] MEDS ORDERED: Furosemide 10 mg/mL 2 mL Inj IVPUSH ONE (08:00)
[2016-10-18 08:15] VITALS: BP 130/72; PULSE 76; RESP 18; O2SAT 96
--- NOTE | 2016-10-18 08:20 | PCM.PNMED ---
Subjective Date of Service Oct 18, 2016 Subjective Patient states that she only has pain with BM now. The abdominal cramping has resolved. She agrees that if her pain control is addressed, she is ready to be discharged home Exam Vital Signs Vital Sign - Last Date Time Temp Pulse Resp B/P Pulse Ox O2 Delivery O2 Flow Rate FiO2 10/18/16 01:10 36.8 68 17 123/74 96 Room Air 10/15/16 02:09 2.00 Intake and Output 10/17/16 10/17/16 10/18/16 Cumulative From/Thru 15:00 23:00 07:00 10/12/16 13:01 - 10/18/16 05:39 Intake Total 1698 ml 1581 ml 1512 ml 17124 ml Output Total 10 ml Balance 1698 ml 1581 ml 1512 ml 34005 ml Intake Oral 400 ml 1000 ml 1200 ml 92537 ml IV Total 1298 ml 581 ml 312 ml 26019 ml FFP 440 ml Output Urine Total 10 ml # Voids 7 9 7 89 # Bowel Movements 5 10 6 95 Exam Gen.: No acute distress sitting up in the chair HEENT: NCAT Heart: Mitral valve click is heard and regular rate and rhythm Lungs: Clear to auscultation no crackles or wheezes Abdomen: Soft nontender nondistended, normal bowel sounds Extremities: 2+ edema Neuro: No focal deficits deficits Psych: Negative for anxiety and agitation affect is pleasant mood is cooperative Neck: Negative for JVD, trachea central Skin warm and dry IVs and Medications IV Fluids Discontinued Medications Reviewed: Medications were reviewed in detail Lab and Diagnostics Result Diagram: 10/17/16 0610/17/16 06 X-Rays, CTs and MRIs [facility] Diagnostic Imaging Department [place], [place] [id number] Patient Name: LAMAR YBARRA MR#: [id number] Location: [facility] [place] Ordering Phys: Silva Hamilton DO Date of Service: 10/14/16 1325 PROCEDURE: CT ABDOMEN AND PELVIS WITH CONTRAST (PNL-7102) INDICATIONS: abd pain, diarrhea TECHNIQUE: After the administration of oral and intravenous contrast, 5 mm thick sections acquired from the diaphragms to the symphysis. 5 mm thick coronal and sagittal reformats were performed. For radiation dose reduction, the following was used : automated exposure control, adjustment of mA and/or kV according to patient size. COMPARISON: [facility], CT, CT CHEST ABD PELVIS W CON, 07/11/2016, 16:24. FINDINGS: Image quality: Diagnostic. ABDOMEN: Lung bases: Lung bases are clear. The heart is borderline prominent in size. Postoperative changes of the mitral valve are noted, not well evaluated. No pericardial effusion is evident. Solid organs: The gallbladder is enlarged and contains at least one gallstone. Otherwise, the liver is unremarkable. The spleen, pancreas, and adrenals are within normal limits. The kidneys are unchanged. No hydronephrosis or definite renal lesion is evident. The ureters are normal in course and caliber. Peritoneum and bowel: The stomach and duodenum are within normal limits. Moderate thickening of the wall of the distal ileum is identified with moderate surrounding inflammation, which is new since the prior examination. The colon is within normal limits. Fluid is seen within the colon. No free fluid, loculated fluid collection or free air is evident. Previously seen subcutaneous nodules along the anterior abdominal wall have larger resolved in the interim. Nodes and vessels: No retroperitoneal or mesenteric adenopathy. Aorta and inferior vena cava are normal in caliber. There is aortic atherosclerosis. Bones: Imaged osseous structures are age-appropriate and unchanged. No acute fractures or suspicious osseous lesions are evident. PELVIS: G IMPRESSION: 1. Prominent thickening of the wall of the terminal ileum with surrounding edema is suggestive of ileitis and clinical correlation is recommended. No bowel obstruction. 2. Enlarged left inguinal lymph node probably has not significantly changed. No new or increasing lymph nodes are evident. Previously seen left perirectal/ anal lymph node is no longer evident. 3. Cholelithiasis. Note: Findings were discussed with Dr. Hamilton at 1606 hours on 10/14/16. Dictated by: Lonnie Parkinson M.D. on 10/14/2016 at 15:27 Approved by: Lonnie Parkinson M.D. on 10/14/2016 at 16:07 Assessment & Plan Rectal Pain due to radiation for anal cancer: POA, active and ongoing -- Palliative care consult is ordered: "Dr Ladd met with patient and placed orders for fentanyl patch, lidocaine patch. IV Dilaudid still available and PO Dilaudid ordered with instructions from Dr Ladd to begin tomorrow after fentanyl patch takes effect." . I siddhartho spoke with Dr. Bangura and she advises pt to use a dilaudid+lidocaine paste to help with rectal pain. Dr. Rodrick Sanchez [facility] called and asked pt to use silvadine after sitzbath TID. Pt may alternate this with Dr. Ladd's cream. Anemia of chronic disease + Anemia due to blood loss : Likely due to cancer and due to rectal bleeding she has been experiencing -- Iron panel -- Type and screen Supratherapeutic INR, poa, active -INR 7.96 on admit, 2.33 today -Goal is 2.5 to 3.5 for mitralvalve -coumadin per Pharmacy -- INT 4 on 10/18 Hypokalemia, POA active -- Repleted as needed --check daily lab Unremitting diarrhea, present on admission. Active. Improving slowly -IV hydration NSS 100 cc/hr, -increase the Lomotil to two tablets every 4 hours p.r.n. -stool PCR negative is negative -dietary consult for diarrhea -decadron 4 mg IV bid : restarted 10/15 looks like only one dose was given on -discussed case with Dr. Garcia, who feels this is radiation induced, her xeloda pills were stopped. He recommends pt be kept in the hosp until further resolution of diarrhea. Increased the octretide.to 100 mcg Q8H SQ per his rec. Will d/c as pt is not takig it --Ordered Abd CT W per Dr. Garcia's rec on 10/15: Showed concern for enteritis, Dr. Garcia feels this is secondary to radiation as well. -- Cholestyramine was given per Dr. Garcia's recs -- She had 8 bowel movements10/16 night -- Increase oxycodone to every 4 hr and 1-2 tablets better pain control -- Switched to PO dexamethasone 4 mg QD xtotal 4 doses and stop. Fever on 10/15 evening: resolved -- Cipro/flagyl were ordered, alter changed by the pharmacy to zosyn due to concern for supra therapeutic INR. -- Cont IV steroids -- Will order blood cx if fever comes back -- We will discuss discontinuation of antibiotics with , he is agreeable to switching her to Augmentin : Pt is now on Augmentin Dehydration present on admission, improving. -continue hydration at 30 cc/hr --d/c fluids, her legs have gotten worse --10 of IV lasix is ordered Mechanical mitral valve. On Coumadin. Present on admission. -coumadin as above. Stage IIIB anal cancer, present on admission. Stable. -- Oncology is consulted CODE STATUS: FULL CODE. Code sheet filled out. Disposition: To home after psin control is achieved The patient is admitted under inpatient status with expected length of stay greater than 2 midnights due to severity of presenting symptoms. Risk of adverse events and complexity of treatment plan. Pain Evaluation: Pain not Controlled VTE Mechanical Devices: Intermittant Pneumatic CD Resuscitation Status: CPR: Attempt Resuscitation Silva Hamilton DO Oct 18, 2016 08:01
[2016-10-18] MEDS: Amoxicillin-Clav 875-125 mg Tablet PO SCH ×2 (08:29→19:47)
[2016-10-18] MEDS: Ascorbic Acid 500 mg Tablet PO SCH (08:30)
[2016-10-18] MEDS: AMBEREN PO SCH (08:30)
[2016-10-18] MEDS: Vitamin B Complex/Vit C Tablet PO SCH (08:31)
--- NOTE | 2016-10-18 09:27 | PCM.PHAPRO ---
Progress Warfarin dosing 14-Waqas 15-Waqas 16-Waqas 10.63 3.19 4.07 4.81 -7.44 0.88 HOLD 2.5 HOLD Levi Beckett Pharm.D Oct 18, 2016 09:27
[2016-10-18] MEDS: Cholestyramine Resin Powder 4 Gm Packet PO SCH ×2 (10:13→21:38)
--- NOTE | 2016-10-18 10:26 | PCM.CONPAL ---
Date of Service Oct 18, 2016 Date of Hospital Admission: Oct 12, 2016 at 15:17 Date of Palliative Consult: Oct 18, 2016 Requesting Provider: Silva Hamilton DO Reason Palliative Care Consult: Pain Reason for Consultation 60-year-old female with recently diagnosed with stage IIIB anal cancer, on chemoradiation therapy, with uncontrolled pain. Hospital Unit @time of consult: Other ([place] rm [id number]) Palliative Care Recommendation Summary of palliative recommendations: This is a 60-year-old female with stage IIIB anal cancer, on chemoradiation therapy, admitted for intractable severe diarrhea and pain associated with bowel movements and some bleeding per rectum in the setting of supratherapeutic INR for prosthetic mitral valve. -Symptom management (Pain/other). 1. Pain currently not controlled on oxycodone 10mg PO every 6 hours and hydromorphone 1mg IV every 3 hours as needed. -Start fentanyl patch 50mcg/hr. Discontinue oxycodone. -Start clonazepam 0.5mg twice daily as pain adjuvant and as anxiolytic ( pt reports that she anticipates pain prior to defecation). -Continue with hydromorphone 1mg IV every 3 hours as needed for breakthrough pain. Anticipate discontinuing hydromorphone IV tomorrow and starting oral hydromorphone 4mg every 3 hours as needed tomorrow. -Start lidocaine patch to address neuropathic "stinging, burning" pain. -Dr. Ladd contacted [facility] compounding pharmacy in [place] to formulate an analgesic ointment to be applied topically to rectum: prescribed 0.5%hydromorphone and 1% lidocaine in mucolox gel (Disp: 30g tube). Once this medication has been compounded, will bring it to hospital and Pall Care Team of Attending can write order for pt to use after each BM and prn for breakthrough rectal pain. -DPOA/Advanced Directives/POLST 1. FULL CODE Additional Medical Diagnoses with primary management by Hospitalist team include : Rectal Pain Anemia Supratherapeutic INR, poa, active Unremitting diarrhea, present on admission. Active. Improving slowly Fever on 10/15 evening: resolved Dehydration present on admission, improving. Mechanical mitral valve. On Coumadin. Present on admission. Stage IIIB anal cancer, present on admission. Stable. 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 Pain: Moderate Symptom management: Anxiety (moderate, related to anticipation of pain), Pain Pt History History of Present Illness Per admit note: This is a 60-year-old female, recently diagnosed with stage IIIB anal cancer, on chemoradiation therapy, who has had just unremitting diarrhea for 2+ weeks. The patient has been given octreotide. She had a stool diff sent which was negative. She has been taking Imodium and then Lomotil with no relief. Her INR went very high. That had to be held, INR was 10 on Friday. Repeated on 10/12, it was down to 7, and her Coumadin has been on hold. Patient also uses Percocet for pain, mostly in the perirectal/abdominal area and that has not been well controlled either, and she is worried that she may not be even absorbing the Percocet that she has been using. No fevers, no chills. No nausea, vomiting. No chest pain. Patient had a headache but that is resolved at this time. She is put on dexamethasone IV BID 4 mg and Octreotide 50 mcg Q8H IV, she has had some improvement in diarrhea. she is no longer on xeloda. She c/o lower abd pain. Palliative care consulted for symptom management, specifically pain control. Prior to rounding on the patient with Dr. Ladd, the patient's EMR was reviewed in detail. Patient was also discussed with primary medical team and bedside nurse. Patient's outpatient analgesic regimen prior to her admit consisted of oxycodone -acetaminophen 5-325mg 1-2 tablet every 6 hours as needed. She states the oxycodone without the acetaminophen component does not seem to be as effective. She reports rectal pain with bowel movements that she rates 6 to 8 on the analog pain scale. She describes the pain as a stinging, acid-burning type pain. She currently has good relief with the hydromorphone IV 1mg every 3 hours as needed and has also been applying Calmoseptine topical ointment to the affected area. Patient cannot tolerate morphine since it causes pruritus and disorientation. Allergy Allergies Reviewed: Yes Medications Current Medications: Current Medications Magnesium Oxide 400 mg BID PO Last administered on 10/18/16 08:30; Admin Dose 400 MG; Start 10/16/16 at 20:30 Hydromorphone HCl 2 mg Q4H PRN IVPUSH Last administered on 10/17/16 04:32; Admin Dose 2 MG; Start 10/17/16 at 04:00; Stop 10/17/16 at 07:30; Status DC Hydromorphone HCl 1 mg Q4H PRN IVPUSH; Start 10/17/16 at 08:00; Status Cancel Oxycodone/ Acetaminophen pain Q4H PRN PO; Start 10/17/16 at 09:00; Stop at 09:00; Status DC Oxycodone HCl 5 mg Q4H PRN PO; Start 10/17/16 at 08:45; Status UNV Oxycodone HCl 10 mg Q4H PRN PO Last administered on 10/17/16 20:19; Admin Dose 10 MG; Start 10/17/16 at 08:45; Stop 10/18/16 at 10:16; Status DC Oxycodone HCl 5 mg Q4H PRN PO; Start 10/17/16 at 08:45; Stop 10/18/16 at 10:16 ; Status DC Cholestyramine Resin 4 gm BID PO; Start 10/17/16 at 11:15; Stop 10/17/16 at 13: 15; Status DC Amoxicillin/ Clavulanate Potassium 1 tab BID PO Last administered on 10/18/16 08:29; Admin Dose 1 TAB; Start 10/17/16 at 11:15; Stop 10/22/16 at 20:30 Dexamethasone 4 mg DAILYWM PO Last administered on 10/18/16 08:31; Admin Dose 4 MG; Start 10/18/16 at 08:00; Stop 10/22/16 at 08:00 Cholestyramine Resin 4 gm 0930,2130 PO Last administered on 10/18/16 10:13; Admin Dose 4 GM; Start 10/17/16 at 21:30 Hydromorphone HCl 1 mg Q4H PRN PO Last administered on 10/17/16 13:51; Admin Dose 1 MG; Start 10/17/16 at 13:35; Stop 10/17/16 at 15:27; Status DC Hydromorphone HCl 1 mg Q3H PRN IVPUSH Last administered on 10/18/16 09:16; Admin Dose 1 MG; Start 10/17/16 at 15:30 Fentanyl 1 patch Q3D TOPICAL Last administered on 10/18/16 10:09; Admin Dose 1 PATCH; Start 10/18/16 at 09:15 Clonazepam 0.5 mg BID PO; Start 10/18/16 at 20:30; Status UNV Scheduled ([Amberen]) 1 CAPSULE PO DAILY Ascorbic Acid (Vitamin C) 1,000 Mg Tab.chew 1,000 MG PO DAILY Capecitabine (Xeloda) 500 Mg Tablet 2,000 MG PO QAM W/RADIATION Capecitabine (Xeloda) 500 Mg Tablet 1,500 MG PO QEVENING W/RADIATION Cholecalciferol (Vitamin D3) (Vitamin D3) 2,000 Unit Tablet 2,000 UNIT PO QAM Cyanocobalamin (Vitamin B-12) (Vitamin B12) 5,000 Mcg Tab.rapdis 5,000 MCG PO DAILY Krill/Om3/Dha/Epa/Om6/Lip/Astx (Krill Oil 1,000 mg Softgel) 1 Each Capsule 1 EACH PO DAILY Lactobacillus Acidophilus (Probiotic) 1 Each Capsule 1 EACH PO DAILY Magnesium Oxide (Magnesium) 400 Mg Tablet 400 MG PO DAILY Vit B Comp/C/FA/Iron/Vit E (Vitamin B Complex Tablet) 1 Each Tablet 1 EACH PO DAILY Warfarin Sodium (Warfarin Sodium) 6 Mg Tablet 6 MG PO DAILY Scheduled PRN Diphenoxylate/Atropine 2.5-0.025 mg (Lomotil 2.5-0.025 mg) 1 Each Tablet 1 TABLET PO Q6H PRN PRN For Diarrhea or Loose Stool Ondansetron (Zofran) 8 Mg Tablet 8 MG PO q8hrs prn PRN PRN For Nausea Oxycodone HCl/Acetaminophen 5-325 (Endocet 5-325) 1 Each Tablet 1-2 TABLET PO Q6H PRN PRN For Pain Objective Findings Exam Vital Sign - Last Date Time Temp Pulse Resp B/P Pulse Ox O2 Delivery O2 Flow Rate FiO2 10/18/16 08:15 36.4 76 18 130/72 96 Room Air 10/15/16 02:09 2.00 Intake and Output 10/17/16 10/17/16 10/18/16 Cumulative From/Thru 15:00 23:00 07:00 10/12/16 13:01 - 10/18/16 05:39 Intake Total 1698 ml 1581 ml 1512 ml 77402 ml Output Total 10 ml Balance 1698 ml 1581 ml 1512 ml 81916 ml Intake Oral 400 ml 1000 ml 1200 ml 89536 ml IV Total 1298 ml 581 ml 312 ml 78917 ml FFP 440 ml Output Urine Total 10 ml # Voids 7 9 7 89 # Bowel Movements 5 10 6 95 Objective Patient is sitting upright in bed, conversant, and in no acute distress. She appears comfortable. Chest with well-healed midline surgical incision. Cardiac tones regular with audible crisp sounds from previous valve replacement. Lungs are clear bilaterally. Abdomen with bowel tones; soft, non-tender. Extremities are warm with equal dorsal pedis pulses. Bilateral lower extremities with 2+ pitting edema. Lab/Diagnostics Lab and Imaging results reviewed in detail in EMR. Time spent Total time 115 minutes; >50% face to face with patient and/or family, providing counselling regarding plans and recommendations, and in care coordination with his/her medical teams. Attending Statement Dr. Ladd was physically present and available to resident throughout pt interview, physical, discussion of management and she agrees with the documentation of palliative care plan above as outlined by Dr. Moncada. copies to: Elva Hirsch; Paulo Guzman MD, Bob A DO Oct 18, 2016 10:26 Nesha Ladd MD Oct 18, 2016 11:23
--- NOTE | 2016-10-18 11:00 | NUR ---
Social Work: Readiness for Discharge D: Pt discussed in am rounds. Pt is not yet medically stable for discharge at this time, MD and palliative care are working to control patient's pain and wean off the VP PROJECT. EMR reviewed, pt has been ambulating I during admission. MD anticipates no home social work needs for the patient at time of discharge. CEMENT MIXER identified no sw needs. A: Pt who is I at baseline and lives at home iwth her spouse. P: Anticipate pt to discharge home via POV once medically stable; CEMENT MIXER to continue to follow. CARA Junior
--- NOTE | 2016-10-18 11:14 | NUR ---
Palliative Care Palliative Care received order from Dr Hamilton 10/18/16 to assist with symptom management. Patient was admitted 10/12/16. She lives at home in [place] with her . [place] () [phone] Palliative Care to follow. Zoya Ware
[2016-10-18] MEDS: Lidocaine Topical 5% Patch TOPICAL SCH (13:39)
--- NOTE | 2016-10-18 15:09 | NUR ---
NUTRITION FOLLOW-UP: ASSESS: 60YO F admit with severe diarrhea, dehydration, noted likely radiation therapy induced per MD notes. Pt reports poor appetite prior to admit but has been trying to maintain weight during treatment. Pt is on a General diet and tolerating well at 50-100% of meals. She continues to have diarrhea but this seems to be slowly improving and RN noted that the stool is a bit more formed. Wt has been stable throughout hospital stay. Palliative care is following. Pt's Mg on 10/16 was 1.5 and this has not been re-checked. PMHX: Recent dx Stg IIIB Anal CA receiving chemo/rad thx, afib DIET: General. 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, Glu 116, Ca 7.7, Mg 1.5, (10/18) K 3.4 MEDS: Coumadin GI: 6 BM 10/18 WEIGHT: 91.4kg BMI: 31.6kg, admit wt 90.4kg, IBW 61.4kg EST.NEEDS: CANCER/OBESITY Kcal: 2010-2285kcal/day (22-25kcal/kg) Pro: 75-90g/day (1.2-1.5g/kg IBW) NUTRITION DIAGNOSIS: (1) Inadequate oral intake related to radiation induced diarrhea,abdominal cramping per pt as evidenced by pt reported poor oral intake.--IMPROVING INTERVENTION: (1) Continue chocolate Ensure on D tray (2) High kcal/pro ed provided 10/14 (3) Low fiber diet ed provided 10/16 (4) Recommend monitoring electrolytes closely due to large amounts of diarrhea. MONITOR/EVALUATE: PO intake, lab values, weight, GI status. F/U per moderate risk.
[2016-10-18 18:08] VITALS: BP 143/76; PULSE 68; RESP 18; O2SAT 97
--- NOTE | 2016-10-18 18:11 | NUR ---
Pain Patient reports Oxycodone not effective. Pt reports only effective medication to this point has been IV Dilaudid. Discussed with hospitalist and order placed for palliative consult for pain management. Dr Ladd met with patient and placed orders for fentanyl patch, lidocaine patch. IV Dilaudid still available and PO Dilaudid ordered with instructions from Dr Ladd to begin tomorrow after fentanyl patch takes effect.
[2016-10-18 23:49] LABS: Unsaturated Iron Binding 177.2 ug/dL
[2016-10-19] MEDS: HYDROmorphone 1 mg/mL Inj IVPUSH PRN ×2 (00:09→03:54)
[2016-10-19 04:10] VITALS: BP 138/73; PULSE 72; RESP 19; O2SAT 97
--- NOTE | 2016-10-19 05:03 | NUR ---
Pain/New Order Pt. received prn IV dilaudid with low effect, patient has lidocaine and fentanyl patch in place during day shift and stated " It did not helps", received a phone call from Dr. bishop around [phone] to increase frequency of IV dialudid to q2 prn, Notified pharmacy and made pt. aware, denies chest pain and SOB, Vitals stable, Hourly checks, call light in reach at all times, will continue to monitor pain management needs.
[2016-10-19 05:48] LABS: INR 4.3 ratio
--- NOTE | 2016-10-19 07:20 | PCM.PHAPRO ---
Progress Warfarin dosing 15-Waqas 16-Waqas 17-Waqas 3.19 4.07 4.30 -7.44 0.88 0.23 2.5 HOLD HOLD Levi Beckett Pharm.D Oct 19, 2016 07:20
[2016-10-19 08:02] VITALS: BP 138/74; PULSE 60; RESP 18; O2SAT 99
[2016-10-19] MEDS: Vitamin B Complex/Vit C Tablet PO SCH (09:01)
[2016-10-19] MEDS: Ascorbic Acid 500 mg Tablet PO SCH (09:04)
[2016-10-19] MEDS: Amoxicillin-Clav 875-125 mg Tablet PO SCH (09:04)
[2016-10-19] MEDS: Lidocaine Topical 5% Patch TOPICAL SCH (09:08)
[2016-10-19] MEDS: AMBEREN PO SCH (09:08)
[2016-10-19] MEDS ORDERED: HYDR2TAB27 PO (09:18)
[2016-10-19] MEDS ORDERED: Fentanyl TOPICAL (09:18)
[2016-10-19] MEDS ORDERED: KLO5T PO (09:18)
[2016-10-19] MEDS ORDERED: SENN-133 PO (09:18)
[2016-10-19] MEDS ORDERED: AGM875T PO (09:18)
[2016-10-19] MEDS ORDERED: LIDO700A6 TOPICAL (09:20)
[2016-10-19] MEDS ORDERED: SILV20CR4 TP (09:20)
--- NOTE | 2016-10-19 09:28 | PCM.DIMED ---
Discharge Instructions Date of Service Oct 19, 2016 Dates of Hospitalization Oct 12, 2016 at 15:17 Discharge Diagnosis Discharge Diagnosis Rectal pain due to radiation threapy, Stage 3 Anal Cancer, Unremitting diarrhea , Afib, CHF (Valve related), Supratherapeutic INR Diet Discharge Diet: No restrictions Activity Discharge Activity: No restrictions Call your provider Call your provider for: Fever or Chills, Shortness of breath, Bleeding, Chest pain, Vomitting, Excessive diarrhea, Weakness (unilateral), Other Patient Instructions Patient Instructions Please use the Dr. Bangura's cream and silvadene alternatively. You may use the yeast/monostat typr of plastic applicators (empty ones to apply the cream rectally) Sitz baths TID, silvadene to be applied to rectal area after the bath Hold coumadin till Friday the 10/21/16 INR check Return to ED if signs of sedation. Please watch for increase in rectal bleeding or any other bleeding as your INR is still slightly higher than normal for you. 4 more days of augmentin and then stop. Follow-up plan Please f/u with Dr. Garcia in one week Please f/.u with PCP in one week Check INR on 10/21/16 AM at the coumadin clinic. Check CBC prior to f/u with Silva Aceves DO Oct 19, 2016 09:27
--- NOTE | 2016-10-19 09:39 | PCM.DC.MED ---
Discharge Summary Date of Service Oct 19, 2016 Dates of Hospitalization Date of Hospital Admission Oct 12, 2016 at 15:17 Date of Discharge: Oct 19, 2016 Providers: Admitting Physician: Ephraim Evans MD Primary Care Physician: Elva Hirsch Attending Physician: Ephraim Evans MD Diagnosis at Time of Discharge Diagnosis at Time of Discharge Rectal pain due to radiation threapy, Stage 3 Anal Cancer, Unremitting diarrhea , Afib, CHF (Valve related), Supratherapeutic INR Consultations Oncology, Palliative Care Procedures XRay, CTs & MRIs [facility] Diagnostic [place] [address] Patient Name: LAMAR YBARRA MR#: [id number] Location: [facility] [place]ing Phys: Silva Anderson DO Date of Service: 10/14/16 1325 PROCEDURE: CT ABDOMEN AND PELVIS WITH CONTRAST ([id number]) INDICATIONS: abd pain, diarrhea TECHNIQUE: After the administration of oral and intravenous contrast, 5 mm thick sections acquired from the diaphragms to the symphysis. 5 mm thick coronal and sagittal reformats were performed. For radiation dose reduction, the following was used : automated exposure control, adjustment of mA and/or kV according to patient size. COMPARISON: [facility], CT, CT CHEST ABD PELVIS W CON, 07/11/2016, 16:24. FINDINGS: Image quality: Diagnostic. ABDOMEN: Lung bases: Lung bases are clear. The heart is borderline prominent in size. Postoperative changes of the mitral valve are noted, not well evaluated. No pericardial effusion is evident. Solid organs: The gallbladder is enlarged and contains at least one gallstone. Otherwise, the liver is unremarkable. The spleen, pancreas, and adrenals are within normal limits. The kidneys are unchanged. No hydronephrosis or definite renal lesion is evident. The ureters are normal in course and caliber. Peritoneum and bowel: The stomach and duodenum are within normal limits. Moderate thickening of the wall of the distal ileum is identified with moderate surrounding inflammation, which is new since the prior examination. The colon is within normal limits. Fluid is seen within the colon. No free fluid, loculated fluid collection or free air is evident. Previously seen subcutaneous nodules along the anterior abdominal wall have larger resolved in the interim. Nodes and vessels: No retroperitoneal or mesenteric adenopathy. Aorta and inferior vena cava are normal in caliber. There is aortic atherosclerosis. Bones: Imaged osseous structures are age-appropriate and unchanged. No acute fractures or suspicious osseous lesions are evident. PELVIS: G IMPRESSION: 1. Prominent thickening of the wall of the terminal ileum with surrounding edema is suggestive of ileitis and clinical correlation is recommended. No bowel obstruction. 2. Enlarged left inguinal lymph node probably has not significantly changed. No new or increasing lymph nodes are evident. Previously seen left perirectal/ anal lymph node is no longer evident. 3. Cholelithiasis. Note: Findings were discussed with Dr. Anderson at 1606 hours on 10/14/16. Dictated by: Lonnie Parkinson M.D. on 10/14/2016 at 15:27 Approved by: Lonnie Parkinson M.D. on 10/14/2016 at 16:07 Brief History Per admit note: This is a 60-year-old female, recently diagnosed with stage IIIB anal cancer, on chemoradiation therapy, who has had just unremitting diarrhea for 2+ weeks. The patient has been given octreotide. She had a stool diff sent which was negative. She has been taking Imodium and then Lomotil with no relief. Her INR went very high. That had to be held, INR was 10 on Friday. Repeated on 10/12, it was down to 7, and her Coumadin has been on hold. Patient also uses Percocet for pain, mostly in the perirectal/abdominal area and that has not been well controlled either, and she is worried that she may not be even absorbing the Percocet that she has been using. No fevers, no chills. No nausea, vomiting. No chest pain. Patient had a headache but that is resolved at this time. She is put on dexamethasone IV BID 4 mg and Octreotide 50 mcg Q8H IV, she has had some improvement in diarrhea. she is no longer on xeloda. She c/o lower abd pain. Palliative care consulted for symptom management, specifically pain control. Prior to rounding on the patient with Dr. Ladd, the patient's EMR was reviewed in detail. Patient was also discussed with primary medical team and bedside nurse. Patient's outpatient analgesic regimen prior to her admit consisted of oxycodone -acetaminophen 5-325mg 1-2 tablet every 6 hours as needed. She states the oxycodone without the acetaminophen component does not seem to be as effective. She reports rectal pain with bowel movements that she rates 6 to 8 on the analog pain scale. She describes the pain as a stinging, acid-burning type pain. She currently has good relief with the hydromorphone IV 1mg every 3 hours as needed and has also been applying Calmoseptine topical ointment to the affected area. Patient cannot tolerate morphine since it causes pruritus and disorientation. Hospital Course Rectal Pain due to radiation for anal cancer: POA, active and ongoing -- Palliative care consult is ordered: "Dr Ladd met with patient and placed orders for fentanyl patch, lidocaine patch. IV Dilaudid still available and PO Dilaudid ordered with instructions from Dr Ladd to begin tomorrow after fentanyl patch takes effect." . I aslo spoke with Dr. Bangura and she advises pt to use a dilaudid+lidocaine paste to help with rectal pain. pedro pablo Danielson called and asked pt to use silvadine after sitzbath TID. Pt may alternate this with Dr. Ladd's cream. Anemia of chronic disease + Anemia due to blood loss : Likely due to cancer and due to rectal bleeding she has been experiencing -- Type and screen, did not need blood transfusions -- She is already on iron supplementation at home and iron levels are normal. -- Stable Supratherapeutic INR, poa, active -INR 7.96 on admit, 2.33 today -Goal is 2.5 to 3.5 for mitralvalve -coumadin per Pharmacy -- INT 4 on 10/18 -- INR >4 on 10/19. -- Hold coumadin till 10/21 INR check Hypokalemia, POA resolved -- Repleted as needed --check daily lab Unremitting diarrhea, present on admission. Active. Improving slowly -IV hydration NSS 100 cc/hr, -increase the Lomotil to two tablets every 4 hours p.r.n. -stool PCR negative is negative -dietary consult for diarrhea -decadron 4 mg IV bid : restarted 10/15 looks like only one dose was given on -discussed case with Dr. Garcia, who feels this is radiation induced, her xeloda pills were stopped. He recommends pt be kept in the hosp until further resolution of diarrhea. Increased the octretide.to 100 mcg Q8H SQ per his rec. Will d/c as pt is not takig it --Ordered Abd CT W per Dr. Garcia's rec on 10/15: Showed concern for enteritis, Dr. Garcia feels this is secondary to radiation as well. -- Cholestyramine was given per Dr. Garcia's recs -- She had 8 bowel movements10/16 night -- Increase oxycodone to every 4 hr and 1-2 tablets better pain control -- Switched to PO dexamethasone 4 mg QD -- No need to continue steroid and cholestyramine at discharge -- Patient is feeling better, wanting to go home. Her pain is under control and she is tolerating normal diet, diarrhea has improved. Fever on 10/15 evening: resolved -- Cipro/flagyl were ordered, alter changed by the pharmacy to zosyn due to concern for supra therapeutic INR. -- Cont IV steroids -- Will order blood cx if fever comes back -- We will discuss discontinuation of antibiotics with , he is agreeable to switching her to Augmentin : Pt is now on Augmentin. Four more days at discharge. Dehydration present on admission, improving. -continue hydration at 30 cc/hr --d/c fluids, her legs have gotten worse --10 of IV lasix is ordered Mechanical mitral valve. On Coumadin. Present on admission. -coumadin as above. -- She will be holding coumadin until Saturday 10/21 INR check Stage IIIB anal cancer, present on admission. Stable. -- Oncology is consulted and was very involved. CODE STATUS: FULL CODE. Code sheet filled out. Disposition: To home after psin control is achieved The patient is admitted under inpatient status with expected length of stay greater than 2 midnights due to severity of presenting symptoms. Risk of adverse events and complexity of treatment plan. Exam Vital Signs (Last) Date Time Temp Pulse Resp B/P Pulse Ox O2 Delivery O2 Flow Rate FiO2 10/19/16 08:02 60 18 138/74 99 Room Air 10/19/16 04:10 36.7 10/15/16 02:09 2.00 Exam Gen.: No acute distress sitting up in the chair HEENT: NCAT Heart: Mitral valve click is heard and regular rate and rhythm Lungs: Clear to auscultation no crackles or wheezes Abdomen: Soft nontender nondistended, normal bowel sounds Extremities: improved edema Neuro: No focal deficits deficits Psych: Negative for anxiety and agitation affect is pleasant mood is cooperative Neck: Negative for JVD, trachea central Skin warm and dry Test 10/12/16 13:25 10/12/16 17:04 10/12/16 18:10 10/16/16 07:23 Total Bilirubin 0.6mg/dL (0.0-1.2) Aspartate Amino Transf (AST/SGOT) 38U/L (0-50) Alanine Aminotransferase (ALT/SGPT) 61U/L (0-32) Alkaline Phosphatase 81U/L (25-165) Total Protein 6.1g/dL (6.4-8.4) Albumin 3.4g/dL (3.4-5.0) Lipase 20U/L (13-60) Thyroid Stimulating Hormone (TSH) 2.970uIU/mL (0.450-4.500) Free Thyroxine 1.24ng/dL (0.82-1.77) Hold Villarreal Top Tube Received (Received) Hold Purple Top Tube Received (Received) Procalcitonin 0.04ng/mL (0.00-0.08) Urine Color Yellow (YELLOW) Urine Appearance Clear (CLEAR,HAZY) Urine pH 6.0 (5.0-8.0) Urine Specific [place] 1.005 (1.003-1.035) Urine Protein Negativemg/dL (NEG,TRACE) Urine Glucose (UA) 250mg/dL (NEGATIVE) Urine Ketones Tracemg/dL (NEGATIVE) Urine Occult Blood Small (NEGATIVE) Urine Nitrite Negative (NEGATIVE) Urine Bilirubin Negative (NEGATIVE) Urine Urobilinogen Normalmg/dL (NORMAL) Urine Leukocyte Esterase Small (NEGATIVE) Urine RBC 0-2/hpf (0-2) Urine WBC 6-10/hpf (0-5) Urine Epithelial Cells None/hpf (NONE-MOD) Urine Crystals None seen (NONE SEEN) Urine Bacteria Few/hpf (NONE-FEW) Urine Hyaline Casts None/lpf (NONE) Urine Granular Casts None seen (NONE SEEN) Urine Waxy Casts None seen (NONE SEEN) Urine Red Blood Cell Casts None seen (NONE SEEN) Urine White Blood Cell Casts None seen (NONE SEEN) Urine Mucus None seen (None Seen) Urine Trichomonas None seen (NONE SEEN) Urine Yeast None (NONE SEEN) Urinalysis Comment None Urine Culture Reflexed Indicated Neutrophils (%) (Auto) 80.5% (40-74) Lymphocytes (%) (Auto) 4.7% (14-46) Monocytes (%) (Auto) 13.9% (4-12) Eosinophils (%) (Auto) 0% (0-5) Basophils (%) (Auto) 0% (0-3) Sodium Level 137mEq/L (134-144) Chloride Level 103mEq/L (97-108) Carbon Dioxide Level 20mmol/L (18-29) Blood Urea Nitrogen 7mg/dL (8-27) Creatinine 0.46mg/dL (0.57-1.00) Estimat Glomerular Filtration Rate 198mL/min (>59) Glucose Level 116mg/dL (60-99) Calcium Level 7.7mg/dL (8.5-10.1) Test 10/17/16 06:05 10/18/16 05:40 10/19/16 04:40 Magnesium Level 1.8mg/dL (1.6-2.6) White Blood Count 5.7th/mm3 (3.8-10.1) Red Blood Count 3.44mil/mm3 (3.90-5.20) Hemoglobin 10.2g/dL (12.0-15.6) Hematocrit 30.7% (35.0-46.0) Mean Corpuscular Volume 89.2fL (81-100) Mean Corpuscular Hemoglobin 29.7pg (27.0-35.0) Mean Corpuscular Hemoglobin Concent 33.2% (32.0-37.0) Red Cell Distribution Width 16.7% (12.3-15.4) Platelet Count 240bil/L (150-400) Reticulocyte Count,Calculated 2.2% (0.6-2.6) Potassium Level 3.4mEq/L (3.5-5.2) Iron Level 72ug/dL (35-150) Total Iron Binding Capacity 249ug/dL (250-450) Percent Iron Saturation 29%sat (15-50) Unsaturated Iron Binding 177.2ug/dL Ferritin 367ng/mL (13-150) Prothrombin Time 47.4sec (8.1-12.5) Prothromb Time International Ratio 4.30ratio Discharge Medications Discharge Medications ([Amberen]) 1 CAPSULE PO DAILY (Reported) ([Fentanyl]) 1 PATCH PATCH 1 PATCH TOPICAL Q3D Prescribed by: SILVA ANDERSON DO Amoxicillin/Clav K 875-125 mg (Amoxicillin/Clav K 875-125 mg) 875 Mg Tab 1 TAB PO BID Prescribed by: SILVA ANDERSON DO Ascorbic Acid (Vitamin C) 1,000 Mg Tab.chew 1,000 MG PO DAILY (Reported) Cholecalciferol (Vitamin D3) (Vitamin D3) 2,000 Unit Tablet 2,000 UNIT PO QAM ( Reported) Clonazepam (Clonazepam) 0.5 Mg Tablet 0.25 MG PO BID Prescribed by: SILVA ANDERSON DO Cyanocobalamin (Vitamin B-12) (Vitamin B12) 5,000 Mcg Tab.rapdis 5,000 MCG PO DAILY (Reported) Krill/Om3/Dha/Epa/Om6/Lip/Astx (Krill Oil 1,000 mg Softgel) 1 Each Capsule 1 EACH PO DAILY (Reported) Lactobacillus Acidophilus (Probiotic) 1 Each Capsule 1 EACH PO DAILY (Reported) Lidocaine (Lidoderm) 700 Mg Adh..patch 1 PATCH TOPICAL DAILY Prescribed by: SILVA ANDERSON DO Magnesium Oxide (Magnesium) 400 Mg Tablet 400 MG PO DAILY (Reported) Vit B Comp/C/FA/Iron/Vit E (Vitamin B Complex Tablet) 1 Each Tablet 1 EACH PO DAILY (Reported) As needed Diphenoxylate/Atropine 2.5-0.025 mg (Lomotil 2.5-0.025 mg) 1 Each Tablet 1 TABLET PO Q6H PRN PRN For Diarrhea or Loose Stool (Reported) Hydromorphone (Dilaudid) 2 Mg Tablet 4 MG PO Q3 PRN PRN For Pain Prescribed by: SILVA ANDERSON DO Ondansetron (Zofran) 8 Mg Tablet 8 MG PO q8hrs prn PRN PRN For Nausea (Reported ) Sennosides (Senna) 8.6 Mg Tablet 17.2 MG PO BID PRN PRN For Constipation Prescribed by: SILVA ANDERSON DO Silver Sulfadiazine (Silvadene) 20 Gm Cream..g. 20 GM TP TID PRN PRN For Pain Prescribed by: SILVA ANDERSON DO Followup Plan Follow-up plan Please f/u with Dr. Garcia in one week Please f/.u with PCP in one week Check INR on 10/21/16 AM at the coumadin clinic. Check CBC prior to f/u with Dr. Garcia Discharge Diet: No restrictions Discharge Activity: No restrictions Patient Instructions Please use the Dr. Bangura's cream and silvadene alternatively. You may use the yeast/monostat typr of plastic applicators (empty ones to apply the cream rectally) Sitz baths TID, silvadene to be applied to rectal area after the bath Hold coumadin till Friday the 10/21/16 INR check Return to ED if signs of sedation. Please watch for increase in rectal bleeding or any other bleeding as your INR is still slightly higher than normal for you. 4 more days of augmentin and then stop. Time spent 45 min Silva Anderson DO Oct 19, 2016 09:29
[2016-10-19 09:55] LABS: Mean Corpuscular Hemoglobin 29.4 pg (27.0-35.0); Mean Corpuscular Volume 88.6 fL (81-100)
[2016-10-19] MEDS ORDERED: FERR-83 PO (09:56)
[2016-10-19] MEDS ORDERED: Potassium Chloride Inj 30 MEQ in Dextrose 5% 500 ML IV ONE (11:50)
[2016-10-19] MEDS ORDERED: Potassium Chloride 20 mEq SR Tablet PO ONE (11:50)
[2016-10-19] MEDS ORDERED: POTA10TA12 PO (11:52)
[2016-10-19] MEDS: Cholestyramine Resin Powder 4 Gm Packet PO SCH (12:09)
--- NOTE | 2016-10-19 12:11 | NUR ---
Social Work-discharge: Data:EMR Reviewed. Pt is on day 7 of hospitalization for diarrhea per H&P. Pt is medically stable for discharge. Pt has been up ambulating the room independent and has been weaned off the [employer]. No discharge needs identified. Pt's to provide transport home. All updated and agreeable to plan. Assessment:Pt who is independent at baseline. Plan:Pt to discharge home today via POV. No discharge needs identified.All updated and agreeable to plan. CARA Savage
[2016-10-19 12:41] VITALS: BP 130/76; PULSE 69; RESP 18; O2SAT 100
[2016-10-19 17:23] VITALS: BP 137/79; PULSE 80; RESP 18; O2SAT 98
--- NOTE | 2016-10-19 19:14 | NUR ---
Potassium/discharge Lab draw for potassium at 1819. Results reading 4.1. Dr. Hamilton made aware. Pt. was given discharge instructions, medications gone over in detail, with next dosed written. Hard copy of prescriptions given. Care notes on hypokalemia, dehydration, and anemia given. Pt. verbalized understanding. Saline lock discontinued. Pt.'s home med given back to pt. Pt. was taken off the unit via w/c by staff member. pt. Los's sig. other to transport pt. home. Approx. discharge at 1909. Addendum: 10/19/16 at 1917 by JACQUIE BARRY RN Pt. to have potassium, mag, INR to be re-drawn on 10/21/16. CBC to be drawn prior to Dr. Meneses's visit.
[2016-10-25] MEDS ORDERED: FURO-129 PO (14:43)
[2016-10-25] MEDS ORDERED: FENT1PAT6 TRANSDERM (14:43)
== END 2016-10-19 19:13 | disposition home or self-care (01) | DRG 394 ==
LOC: SED 12:54 → INTOOBSV 15:17 → OBSVTOIN 15:17 → MOC 15:17
PROVIDERS: ADMIT Hospitalist; ATTEND Hospitalist
PROC: 30233K1 Transfusion of Nonautologous Frozen Plasma into Peripheral Vein, Percutaneous Approach (ICD-10-PCS; principal; 2016-10-16)
DX: K52.0 Gastroenteritis and colitis due to radiation (principal); C21.0 Malignant neoplasm of anus, unspecified; D62 Acute posthemorrhagic anemia; E86.0 Dehydration; Z79.01 Long term (current) use of anticoagulants; Z95.2 Presence of prosthetic heart valve; R79.1 Abnormal coagulation profile; R19.7 Diarrhea, unspecified; Z92.3 Personal history of irradiation; Z92.21 Personal history of antineoplastic chemotherapy; Z87.891 Personal history of nicotine dependence; R50.9 Fever, unspecified; E87.6 Hypokalemia; Y84.2 Radiological procedure and radiotherapy as the cause of abnormal reaction of the patient, or of later complication, without mention of misadventure at the time of the procedure; Z51.5 Encounter for palliative care; G89.3 Neoplasm related pain (acute) (chronic)

== ENCOUNTER 2016-11-06 13:40 | Emergency (ER) | payer OTHER ==
[~2016-11-06] VITALS: Ht 175.3 cm; Wt 86.2 kg
[~2016-11-06 13:40] MED LIST changes: -CAPE500T PO; -CHOL-4 PO; +CHOL200025 PO; -DIPH1TAB PO; +FENT1PAT7 TRANSDERM; +FURO-129 PO; -MAGN400T39 PO; -OXYC5CAP4 PO; +POTA10TA12 PO; +SILV20CR4 TP; -VIT B COMPLEX PO; +VIT1TABL83 PO; -WARF6TAB6 PO
[2016-11-06 13:59] VITALS: BP 134/62; PULSE 74; RESP 18; O2SAT 100
[2016-11-06] MEDS ORDERED: 0.9% Sodium Chloride 250 ML IV ONE (14:05)
[2016-11-06] MEDS ORDERED: Phytonadione (Adult) 10 MG in Dextrose 5%-Pha MIX 50 ML IV ONE (14:05)
[2016-11-06 14:06] LABS: BASOPHILS % (AUTO) 0.3 % (0-3); EOSINOPHILS % (AUTO) 0.8 % (0-5); MONOCYTES % (AUTO) 12.1 % (4-12); Mean Corpuscular Hemoglobin 28.9 pg (27.0-35.0); Mean Corpuscular Volume 91.8 fL (81-100); NEUTROPHILS % (AUTO) 53.7 % (40-74); Platelet Count 314 bil/L (150-400)
--- NOTE | 2016-11-06 14:07 | ED.REPORT ---
HPI-Headache Date of Service Nov 06, 2016 ED Provider: Desmond Pantoja MD The pt is a 60 y/o female w/ a hx of colon cancer and CHF presenting to the ED complaining of a headache onset 6 days ago. She describes the headache starting off as "normal", localized to the back of her head, continuous, and leaning over making it worse. She also reports changes in speech, as well as decreased balance, memory, and focus . Denies numbness, or weakness. The pt has not had any recent falls or trauma to the head. She was hospitalized on 10/12 for dehydration. Nursing Notes Stated Complaint: HEAD BLEED Chief Complaint: Headache Nursing Notes Reviewed: Yes (CURRENT, Tagkasts not reconciled) Allergies: Coded Allergies: No Known Allergies (Unverified , 08/19/16) Scheduled ([Amberen]) 1 CAPSULE PO DAILY Ascorbic Acid (Vitamin C) 1,000 Mg Tab.chew 1,000 MG PO DAILY Cholecalciferol (Vitamin D3) (Vitamin D3) 2,000 Unit Tablet 2,000 UNIT PO QAM Cyanocobalamin (Vitamin B-12) (Vitamin B12) 5,000 Mcg Tab.rapdis 5,000 MCG PO DAILY Fentanyl 25 mcg/hr Patch (Fentanyl 25 mcg/hr Patch) 1 Each Patch.td72 1 PATCH TRANSDERM Q3D Furosemide (Lasix) 20 Mg Tablet 20 MG PO DAILY Krill/Om3/Dha/Epa/Om6/Lip/Astx (Krill Oil 1,000 mg Softgel) 1 Each Capsule 1 EACH PO DAILY Lactobacillus Acidophilus (Probiotic) 1 Each Capsule 1 EACH PO DAILY Potassium Chloride ER (Potassium Chloride ER) 10 Meq Tablet 10 MEQ PO DAILY TAKE WITH FOOD Vit B Comp/C/FA/Iron/Vit E (Vitamin B Complex Tablet) 1 Each Tablet 1 EACH PO DAILY Scheduled PRN Ondansetron (Zofran) 8 Mg Tablet 8 MG PO q8hrs prn PRN PRN For Nausea Silver Sulfadiazine (Silvadene) 20 Gm Cream..g. 20 GM TP TID PRN PRN For Pain General Time Seen by MD: 13:45 Chief Complaint Headache Hx Obtained From: Patient Arrived By: Walk-in Sudden in Onset?: Yes Onset Occurred: 6 days ago Symptom Duration: Constant Recent Healthcare: Recent doctor visit, Recent hospitalization Past Medical History Past Medical History Notes: Oncologist: Jose Recent admission for dehydration 10/2016 Past Medical History 1. Mitral valve replacement with a prosthetic valve in 2003 on anticoagulation. 2. Congestive heart failure. 3. History of atrial fibrillation on Warfarin 4. Lower extremity edema. 5. Mitral commissurotomy in 1983. When asked, she does not recall she might have received blood transfusion with that procedure in 1983. 6. Echocardiogram performed on June 25, 2016 here at our center showed a normal ejection fraction of 55% to 60%. 7. Stage IIIB anal cancer and started chemoradiation with oral Xeloda and mitomycin-C starting September 11, 2016. Past Surgical History Mitral valve replacement in 2003 Tubal ligation Family History She has one sister and two brothers. One maternal cousin had breast cancer and a paternal female cousin also had breast cancer. Smoking History Unknown if Ever Smoker Social History Alcohol Use: 1-3 per week Drug Use: Denies drug use Ambulatory Status Independent Review of Systems Changes in speech, decreased balance, memory, and focus Neurologic: Reports: Headache, Denies: Numbness, Weakness Complete sys rev & neg: except as marked. Physical Exam Initial Vital Signs Vital Signs (First) Date Time Temp Pulse Resp B/P Pulse Ox O2 Delivery O2 Flow Rate FiO2 11/06/16 13:59 36.7 74 18 134/62 100 Room Air Initial VS: Reviewed, Vital signs normal Respiratory: Breath sounds normal, Clear to auscultation, No respiratory distress Cardiovascular: Regular rate & rhythm, Heart sounds normal, Intact distal pulses Extremities: Vascular intact, Neuro intact, No swelling, No tenderness Skin: Warm, Dry, No cyanosis Psychiatric: Mood/affect normal, Behavior normal, Normal thought content General/Constitutional: Awake, Alert, No acute distress, Well appearing Head / Eyes: Atraumatic, Normocephalic Neck: Atraumatic, Supple, Full range of motion Neurologic: Oriented X3, CN II - XII intact Answers questions appropriately Mentation normal w/o deficit but family reports loss of memory Globally weak but w/ no focal deficits Interpretation & Diagnostics Lab Results Interpretation Result Diagram: 11/06/16 1350 11/06/16 1350 Test 11/06/16 13:50 White Blood Count 4.0th/mm3 (3.8-10.1) Red Blood Count 3.42mil/mm3 (3.90-5.20) Hemoglobin 9.9g/dL (12.0-15.6) Hematocrit 31.4% (35.0-46.0) Mean Corpuscular Volume 91.8fL (81-100) Mean Corpuscular Hemoglobin 28.9pg (27.0-35.0) Mean Corpuscular Hemoglobin Concent 31.5% (32.0-37.0) Red Cell Distribution Width 18.9% (12.3-15.4) Platelet Count 314bil/L (150-400) Neutrophils (%) (Auto) 53.7% (40-74) Lymphocytes (%) (Auto) 33.1% (14-46) Monocytes (%) (Auto) 12.1% (4-12) Eosinophils (%) (Auto) 0.8% (0-5) Basophils (%) (Auto) 0.3% (0-3) Prothrombin Time 25.1sec (8.1-12.5) Prothromb Time International Ratio 2.31ratio Activated Partial Thromboplast Time 39.9sec (22.8-33.0) Sodium Level 137mEq/L (134-144) Potassium Level 4.3mEq/L (3.5-5.2) Chloride Level 100mEq/L (97-108) Carbon Dioxide Level 25mmol/L (18-29) Blood Urea Nitrogen 9mg/dL (8-27) Creatinine 0.48mg/dL (0.57-1.00) Estimat Glomerular Filtration Rate 189mL/min (>59) Glucose Level 100mg/dL (60-99) Calcium Level 8.9mg/dL (8.5-10.1) Total Bilirubin 0.3mg/dL (0.0-1.2) Aspartate Amino Transf (AST/SGOT) 22U/L (0-50) Alanine Aminotransferase (ALT/SGPT) 14U/L (0-32) Alkaline Phosphatase 81U/L (25-165) Total Protein 6.9g/dL (6.4-8.4) Albumin 3.5g/dL (3.4-5.0) Hold Villarreal Top Tube Received (Received) CT Head Interpretation IMPRESSION: Probable acute (versus subacute) on chronic left frontoparietal subdural hemorrhage. Associated rightward midline shift. Critical findings are personally telephoned and discussed with Dr. Pantoja in the emergency department 1420 hours 11/06/16. Study: Head CT no contrast Interpretation / Wet Read by: Interpret - Radiologist Re-Eval/Medical Decision Med Decision/Clinical Course This is a 60-year-old female transferred from radiology with an MRI concerning for subdural hematoma, likely subacute/chronic. His is a patient who is anticoagulated on warfarin for atrial fibrillation, and was recently supratherapeutic with an INR tendon number weeks ago, was taken off warfarin, has had bridging therapy, resume warfarin, and today was therapeutic with an INR of 2.7. She absolutely denies any trauma, but is developed a headache that has been persistent since last . It did not resolve with time, or Tylenol, and she initially thought it might be related to chemotherapy-but given it had not improved she talked her doctors and was set up for an MRI today. She adamantly denies any speech, numbness or weakness, or focal deficit. She and her have noticed a little bit of memory deficits and mild cognitive decline, but reports this began happening with the entire illness and the chemotherapy, but there is not really clear acute change just since the headache started. On exam the patient's wide awake, alert and cooperative. She is in no acute distress. Her speech is clear. No cranial deficits are evident and she has no gross weakness in the extremities without focal deficit. Maintain her airway without difficulty. She is grossly fatigued. Noncontrast head CT was obtained and an IV was drawn repeat labs and coags sent. I discussed the case with [facility], and given everything clinically and radiographically this point points it as subacute chronic, the plan is to use FFP/vitamin K rather than PCC for warfarin reversal. Given the patient's been stable over the past week, round transfer by ALS is also reasonable and is planned. Copies of the patient's recent hospitalization in October 2016 including the palliative care consult and its details including full CODE STATUS, are being made to be sent to [facility] to facilitate care as well. Source of Hx: Old records Re-Evaluation/Progress : Time of Eval: 14:32 Re-Evaluation/Progress Note: Pt rechecked. Discussed plan for pt to go to [facility] for procedure. Consultation : Referral / Consult Name: [facility] Call Returned at: 14:00 Note: Discussed pt's case w/ a Dr. Goss. Differential Diagnosis: Positive: Hemorrhage, subarachnoid, Negative: Carbon monoxide toxicity, Carotid artery dissection, Cerebellar ischemia, Cerebrovascular accident, Closed head injury Counseled Regarding: Diagnosis, Lab results, Need for follow-up, When/why to return to ED Discharge & Departure Impression: Primary Impression: Subdural hematoma Additional Impression: Anticoagulated on warfarin Disposition: Transfer, Acute Care Facility Discharge Condition All VS Reviewed: Yes Condition: Stable Referrals: Elva Hirsch (PCP) Crit Care Except Billable Proc Time Spent: 30-74 minutes Services Performed: Patient management by me, Time spent at bedside, Reviewing test results, Reviewing imaging, Discussing patient care, Documentation in record, Time with fam/surrogate Scribe Attestation Portions of this note were transcribed by Tin Gray. I, Dr. Pantoja personally performed the history, physical exam and medical decision-making; I reviewed and confirmed the accuracy of the information in the transcribed note. Signed by : Suleiman Altamirano, 11/06/16 and 1412. copies to: Elva Hirsch Matthew F MD Nov 06, 2016 14:07 Tin Gray Nov 06, 2016 14:13
--- NOTE | 2016-11-06 14:23 | DRSVH ---
PROCEDURE: CT BRAIN WITHOUT CONTRAST ([id number]) INDICATIONS: abnl MRI suggests bleed TECHNIQUE: Noncontrast 4.5 mm thick angled axial sections acquired from the foramen magnum to the vertex, with c oronal reformats. COMPARISON: None. FINDINGS: Image quality: Excellent. There is a moderate left frontoparietal subdural fluid collection presumably hematoma. Most of this a ppears low attenuation, however there are a few subtle areas of high attenuation seen in the left par ietal region, for example image 17 series 2, image 18 series 2 which may reflect acute versus subacut e subarachnoid/extra-axial hemorrhage. There is associated midline shift approximately 1 cm. There is also partial effacement of the left lateral ventricle. The basal cisterns appear grossly preserved. Brainstem grossly unremarkable. Anterior and posterior falx calcifications. Skull and face: Calvarium and visualized facial bones appear intact, without suspicious lesions. Sinuses: Visualized sinuses and mastoids are clear. IMPRESSION: Probable acute (versus subacute) on chronic left frontoparietal subdural hemorrhage. Associated right colon midline shift. Critical findings are personally telephoned and discussed with Dr. Pantoja in the emergency department 1420 hours 11/06/16. Dictated by: Kolby To M.D. on 11/06/2016 at 14:14 Approved by: Kolby To M.D. on 11/06/2016 at 14:21
[2016-11-06 14:27] LABS: INR 2.31 ratio
[2016-11-06 14:34] VITALS: BP 121/59; PULSE 71; RESP 16; O2SAT 99
[2016-11-06 15:17] VITALS: BP 121/59; PULSE 71; RESP 16; O2SAT 99
[2016-11-20] MEDS ORDERED: ASCO500C6 PO (16:17)
== END 2016-11-06 15:18 | disposition short-term general hospital (02) ==
LOC: SED 13:40
DX: I62.00 Nontraumatic subdural hemorrhage, unspecified (principal); Z79.01 Long term (current) use of anticoagulants; I50.9 Heart failure, unspecified; C21.0 Malignant neoplasm of anus, unspecified; Z95.2 Presence of prosthetic heart valve
CPT/HCPCS: 36415; 70450; 80053; 85025; 85610; 85730; 86927; 99291; J3430; J7050